=== PATIENT | female | born 1935 | race Asian ===

== ENCOUNTER 2017-09-09 17:22 | Inpatient (IN) | payer MEDICARE, OTHER ==
[~2017-09-09] VITALS: Ht 152.4 cm; Wt 51.4 kg
[2017-09-09 21:01] VITALS: BP 140/68
[2017-09-09 21:02] VITALS: BP 116/60
--- NOTE | 2017-09-09 21:12 | NUR ---
PT RECEIVED DIRECT ADMIT. PT IS INTUBATED 7.0 ETT SECURED AT 22CM AT THE LIP. AC 12, 400, 35%, +5. NO RESP DISTRESS NOTED. PT TOLERATING VENT SETTINGS. SX'D FOR SML AMT OF TINGED SECRETIONS. VENT ALARMS SET AND AUDIBLE. AMBU BAG AT BEDSIDE. WILL CONTINUE TO MONITOR. Addendum: 09/09/17 at 2113 by ESTEVAN THOMAS RT Amended: Links added.
[2017-09-09 22:00] VITALS: BP 118/65
[2017-09-09] MEDS ORDERED: IV NS 0.9% 1,000 ML IV PRN (22:15)
[2017-09-09] MEDS ORDERED: ACETAMINOPHEN 325 MG TABLET PO PRN (22:30)
[2017-09-09] MEDS ORDERED: ONDANSETRON HCL/PF 4 MG/2 ML VIAL IVP PRN (22:30)
[2017-09-09] MEDS ORDERED: MAGNESIUM HYDROXIDE 30 ML UDC PO PRN (22:30)
[2017-09-09] MEDS ORDERED: MAG HYDROX/AL HYDROX/SIMETH 30 ML UDC PO PRN (22:30)
[2017-09-09 22:33] VITALS: BP 117/60
[2017-09-09 22:56] LABS: BASOPHILS % (AUTO) 0.2 % (0.0-2.0); HEMATOCRIT 33 % (33-45); HEMOGLOBIN 10.7 g/dL (11.5-14.8); LYMPHOCYTES # (AUTO) 4.9 /CMM (0.8-4.8); LYMPHOCYTES % (AUTO) 23.6 % (20.0-44.0); MEAN CORPUSCULAR HEMOGLOBIN 32 PG (26.0-33.0); MEAN CORPUSCULAR HGB CONC 33 g/dl (31.0-36.0); MEAN CORPUSCULAR VOLUME 98 fL (82-100); MONOCYTES # (AUTO) 0.1 /CMM (0.1-1.30); MONOCYTES % (AUTO) 0.7 % (2.0-12.0); NEUTROPHILS # (AUTO) 15.6 /CMM (1.8-8.9); NEUTROPHILS % (AUTO) 75.5 % (43.0-81.0); PLATELET COUNT (AUTO) 85 /CMM (150-450); RDW COEFFICIENT OF VARIATION 15.1 (11.5-15.0); RED BLOOD CELL COUNT(AUTO) 3.36 MIL/uL (4.0-5.2); WHITE BLOOD COUNT (AUTO) 20.7 K/uL (4.3-11.0)
--- NOTE | 2017-09-09 22:57 | NUR ---
BED MAKERMR TEACHER. PT DIRECT ADMITTED FROM [facility] . ORALLY INTUBATED, PT AWAKE, OPEN EYES. DOES NOT FOLLOW COMMANDS. RT HAND CONTRACTED. LT SIDE MILD WEAKNESS, ADONAY FOOT NONPITTING EDEMA 2+.SACRAL WOUND AND MULTIPLE BRUISE AND SCAB,DRESSING DONE. WOUND CONSULT ORDERED. OGT INTACT. CLAMPED. ETT #7,AC 12,LIP 22,TV 400,FIO2 35%,PEEP 5. SAT 98%. NO ACUTE DISTRESS NOTED. FRINGE KNOTTER SHOWING NSR, IV LT UPPERARM PICC LINE AND LT AC 22G. FC PATENT. HOB ELEVATED. AFEBRILE. WILL CONTINUE TO MONITOR VITALS.
[2017-09-09 23:00] VITALS: BP 109/63
[2017-09-09] MEDS ORDERED: CEFEPIME 1 GM in IV D5W 50 ML IV SCH (23:00)
--- NOTE | 2017-09-09 23:04 | NUR ---
FOUR SLIDE MACHINE SETTER. PERSONAL LINES SALES EXECUTIVE GULSHAN HUGHES AT BED SIDE ASSESSED THE PT SPOKE WITH PT DAUGHTER. NEW ORDER RECEIVED.
[2017-09-09 23:08] LABS: ABG BASE EXCESS -8.1 mmol/L; ABG OXYGEN SATURATION 97.6 % (92.0-98.5); ABG PCO2 22.5 mmHg (35.0-45.0); ABG PH 7.425 (7.350-7.450); ABG PO2 114.5 mmHg (75.0-100.0); AaDO2 108.9 mmHg; COHb 0.3 % (0.5-1.5); MetHb 0.8 % (0.0-1.5); O2Hb 96.5 % (94.0-97.0); PEEP,BG 5 cm H2O; SITE, ABG Left Radial
--- NOTE | 2017-09-09 23:09 | NUR ---
ABG DONE. RN NOTIFIED WITH THE RESULT.
[2017-09-09 23:10] LABS: INR 1.3 (0.87-1.13)
[2017-09-09 23:14] LABS: ALANINE AMINOTRANSFERASE 12 U/L (12-78); ALBUMIN 1.9 g/dL (3.4-5.0); ALKALINE PHOSPHATASE 85 U/L (46-116); ASPARTATE AMINOTRANSFERASE 57 U/L (15-37); BILIRUBIN,TOTAL 0.3 mg/dL (0.2-1.0); CARBON DIOXIDE 16 mmol/L (21-32); CHLORIDE 112 mmol/L (98-107); CREATININE 1.1 mg/dL (0.6-1.3); GLUCOSE 59 mg/dL (74-106); POTASSIUM 4.3 mmol/L (3.5-5.1); SODIUM SERUM 137 mmol/L (136-145); UREA NITROGEN, BLOOD 38 mg/dL (7-18)
[2017-09-09] MEDS ORDERED: CEFEPIME 1 GM VIAL ONE (23:17)
[2017-09-09 23:18] LABS: BAND % (MANUAL) 22 % (0.0-5.0); LYMPHOCYTES % (MANUAL) 29 % (16-48); NEUTROPHILS % (MANUAL) 47 (42-76)
[2017-09-09 23:19] LABS: METAMYELOCYTES % 1 % (0-0); MONOCYTES % (MANUAL) 1 % (0-11.0); TROPONIN I 1.461 ng/mL (0.00-0.056)
[2017-09-09 23:22] LABS: CHOLESTEROL 68 mg/dL (<200); HDL CHOLESTEROL 14 mg/dL (40-60); LDL 27 mg/dL (0-99); THYROID STIMULATING HORMONE 1.587 uIU/mL (0.358-3.74); TRIGLYCERIDES 100 mg/dL (30-150)
[2017-09-09 23:31] VITALS: BP 105/58
--- NOTE | 2017-09-09 23:41 | NUR ---
UX INTERACTION DESIGNER. CRITICAL LAB CALLED LACTIC ACID IS 2., GULSHAN THERAPEUTIC STRATEGY LEAD MADE AWARE NS 500ML BOLUS GIVEN.
--- NOTE | 2017-09-09 23:42 | NUR ---
TIMBER SPRINKLER. ABG DONE. RESULT WITH GULSHAN HUGHES NO ORDERS.
[2017-09-10] VITALS (52 sets, daily range): BP systolic 105–169; BP diastolic 51–84
[2017-09-10] MEDS ORDERED: IV NS 0.9% 500 ML IV ONE
[2017-09-10] MEDS ORDERED: VANCOMYCIN 1 GM VIAL ONE (00:49)
[2017-09-10] MEDS ORDERED: VANCOMYCIN 1 GM in IV NS 0.9% 250 ML IV ONE (01:00)
--- NOTE | 2017-09-10 01:10 | NUR ---
@[address] @[address]
[2017-09-10 02:28] LABS: BILIRUBIN,DIRECT 0.1 mg/dL (0.0-0.2)
--- NOTE | 2017-09-10 03:33 | NUR ---
DEMOLITION WORKER. AM CARE, ORAL CARE,BED BATH GIVEN. LINEN CHANGED, REMAINING SAME VENT SETTING TOLERATED WELL. SAT 98%. NO ACUTE DISTRESS NOTED. SECONDARY SCHOOL PRINCIPAL SHOWING NSR. IV LT UPPER ARM PICC LINE, IVF NS 50ML/H, FC PATENT. OGT CLAMPED. NPO. HOB ELEVATED, AFEBRILE. TURN AND REPOSITION Q2H. WILL CONTINUE TO MONITOR VITALS.
[2017-09-10 04:54] LABS: BASOPHILS % (AUTO) 0.2 % (0.0-2.0); EOSINOPHILS % (AUTO) 0.4 % (0.0-6.0); HEMATOCRIT 39 % (33-45); HEMOGLOBIN 12.4 g/dL (11.5-14.8); LYMPHOCYTES # (AUTO) 4.8 /CMM (0.8-4.8); LYMPHOCYTES % (AUTO) 22.7 % (20.0-44.0); MEAN CORPUSCULAR HEMOGLOBIN 32 PG (26.0-33.0); MEAN CORPUSCULAR HGB CONC 32 g/dl (31.0-36.0); MEAN CORPUSCULAR VOLUME 99 fL (82-100); MONOCYTES # (AUTO) 0.1 /CMM (0.1-1.30); MONOCYTES % (AUTO) 0.6 % (2.0-12.0); NEUTROPHILS % (AUTO) 76.1 % (43.0-81.0); PLATELET COUNT (AUTO) 52 /CMM (150-450); RDW COEFFICIENT OF VARIATION 15.2 (11.5-15.0)
[2017-09-10] MEDS ORDERED: IV NS 0.9% 1,000 ML IV PRN (05:00)
[2017-09-10 05:07] LABS: CALCIUM, SERUM 6.1 mg/dL (8.5-10.1); CARBON DIOXIDE 15 mmol/L (21-32); CHLORIDE 111 mmol/L (98-107); CREATININE 1.1 mg/dL (0.6-1.3); GLUCOSE 73 mg/dL (74-106); MAGNESIUM 2.4 mg/dL (1.8-2.4); PHOSPHORUS 3.7 mg/dL (2.5-4.9); SODIUM SERUM 140 mmol/L (136-145); UREA NITROGEN, BLOOD 38 mg/dL (7-18)
[2017-09-10] MEDS: DAKINS QUARTER STRENGTH (0.125%) 480 ML BOTTLE TOP SCH (06:00)
[2017-09-10 06:13] LABS: BAND % (MANUAL) 25 % (0.0-5.0); LYMPHOCYTES % (MANUAL) 16 % (16-48); NEUTROPHILS % (MANUAL) 59 (42-76)
--- NOTE | 2017-09-10 08:16 | NUR ---
WOUND CARE CONSULT: PATIENT SEEN AND SKIN INTEGRITY ASSESSMENT DONE. PLEASE SEE MANAGER GRAPHIC ASSESSMENT IN PCS FOR TODAY. RECOMMEND SURGICAL CONSULT WELL DPM. PATIENT WITH CURRENT ERNIE OF 13, CONTINUE ALL PRESSURE ULCER PREVENTION MEASURES PER CURRENT PLAN OF CARE. WILL SEE PATIENT PRN. SURGICAL TEAM NOTIFIED. Addendum: 09/10/17 at 0823 by HILLARY REYNOLDS RN Amended: Links added.
[2017-09-10] MEDS: PANTOPRAZOLE 40 MG VIAL IV SCH (09:21)
[2017-09-10] MEDS ORDERED: IOHEXOL-300 100 ML VIAL IV ONE (09:29)
[2017-09-10] MEDS ORDERED: IV NS 0.9% 250 ML IV ONE (09:29)
[2017-09-10] MEDS ORDERED: CT SWABBABLE VALVE TRANS SET 1 EA INFUS.SET MC ONE (09:29)
[2017-09-10] MEDS ORDERED: CEFEPIME 2 GM in IV D5W 100 ML IV SCH (10:00)
--- NOTE | 2017-09-10 10:40 | NUR ---
PT REC'D INTUBATED VIA 7.0 ETT @22CM AT THE LIP. PT ON VENT AWAKE AND ALERT WITH NO SEDATION ON BOARD. PT DOES NOT APPEAR TO BE IN ANY RESP. DISTRESS. VENT SETTINGS PER PULMONARY, ALARMS SET AND AUDIBLE PER POLICY. VENT PLUGGED INTO RED OUTLET. AMBU BAG AT HOB. Addendum: 09/10/17 at 1042 by REGINE HURLEY RT Amended: Links added.
[2017-09-10] MEDS ORDERED: FEE PK DOSING 1 MIN EA MC ONE (12:26)
[2017-09-10 13:57] LABS: BILIRUBIN,URINE NEGATIVE (NEGATIVE); BLOOD, URINE 1+ Ery/uL (NEGATIVE); COLOR,URINE YELLOW (YELLOW); KETONES,URINE NEGATIVE (NEGATIVE); LEUKOCYTE ESTERASE ,URINE NEGATIVE (NEGATIVE); NITRITE, URINE NEGATIVE (NEGATIVE); PROTEIN,URINE NEGATIVE (NEGATIVE); UGLUCOSE NEGATIVE (NEGATIVE); UROBILINOGEN,URINE 0.2 EU/dL (0.2)
[2017-09-10 14:32] LABS: APPEARANCE,URINE SLIGHTLY HAZY (CLEAR)
[2017-09-10 14:34] LABS: BACTERIA,URINE Few /HPF (None Seen); SQUAMOUS EPITHELIAL CELL,UR Few /HPF (None Seen); WBC,URINE 0-2 /HPF (0-3)
[2017-09-10 14:38] LABS: URINE TOTAL PROTEIN 39.7 mg/dL (0-11.9)
[2017-09-10 15:39] LABS: EOSINOPHIL,URINE None Seen
[2017-09-10] MEDS: ZOSYN IVPB 2.25 G in IV D5W 50ml IV SCH ×3 (16:30→23:06)
--- NOTE | 2017-09-10 16:31 | NUR ---
PT IS BACK FROM HIDA SCAN. TOLERATED PROCEDURE WELL. GALLBLADDER NOT VISUALIZED DURING THIS SCAN. WILL REPEAT AT 17:30 DR BARBER IS HERE TO SEE PT. UPDATED ON PROGRESS.
--- NOTE | 2017-09-10 18:00 | NUR ---
PT WENT FOR REPEAT HIDA SCAN. ASSISTED WITH BED BATH, ORAL CARE AND SKIN CARE. PHARMACY NOTIFIED THAT WE ARE STILL AWAITING [facility] FOR WOUNDCARE. DAUGHTER IS AT THE BEDSIDE NOW. UPDATED ON PROGRESS, CONSENT FOR DEBRIDEMENT OF SACRAL WOUND OBTAINED.
[2017-09-10] MEDS: IV NS 0.9% 1,000 ML IV PRN (19:00)
--- NOTE | 2017-09-10 19:30 | NUR ---
PROSTHETIC ASSISTANT INITIAL NOTES RECEIVED PATIENT IN BED, ASLEEP/EYES CLOSED. PATIENT ORALLY INTUBATED, ON MECHANICAL VENT AT PRESCRIBED SETTINGS, SUCTIONED FOR AIRWAY CLEARANCE. CLARK PICC PATENT AND INTACT, FLUSHED WITH NS, NO S/S OF INFILTRATION OR PHLEBITIS, ONGOING IVF AT PRESCRIBED RATE. OGT PATETN AND INTACT, AUSCULTATED FOR PLACEMENT, CLAMPED. CAMARGO PATENT AND INTACT, DRAINING CLEAR YELLOW URINE VIA GRAVITY. WILL CONTINUE TO CLOSELY MONITOR.
--- NOTE | 2017-09-10 20:01 | NUR ---
PT IS AWAKE AND ALERT INTUBATED 7.0 ETT SECURED AT 22CM AT THE LIP. NO RESP DISTRESS. PT TOLERATING VENT SETTINGS. SX'D FOR SML AMT OF THIN TINGED SECRETIONS. VENT ALARMS SET AND AUDIBLE. AMBU BAG AT BEDSIDE. VENT PLUGGED INTO RED OUTLET. WILL CONTINUE TO MONITOR. Addendum: 09/10/17 at 2002 by ESTEVAN THOMAS RT Amended: Links added.
--- NOTE | 2017-09-10 20:15 | NUR ---
Met with daughter Abiola, patient is non-verbal, lethargic with hx of dementia. Patient lives with son and son's family in the 1st floor apartment. Patient spouse is currently at the [facility] on HD. 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 Patient has good family support and receives IHSS. Available DME: hosp bed and wheelchair. If patient goes back home > family is requesting hoyerlift and recliner chair. Family would like to discuss with attending physician patient prognosis for appropriate dc planning disposition - Home vs SNF Addendum: 09/10/17 at 2016 by ROXANA ALEX RN Amended: Links added.
[2017-09-10] MEDS: VANCOMYCIN 500 MG in IV D5W 100 ML IV SCH (20:47)
[2017-09-10] MEDS: CARVEDILOL 3.125 MG TABLET PO SCH (20:47)
[2017-09-10] MEDS: ATORVASTATIN 10 MG TABLET PO SCH (21:06)
[2017-09-11] VITALS (50 sets, daily range): BP systolic 62–154; BP diastolic 42–84
[2017-09-11] MEDS: IV NS 0.9% 1,000 ML IV PRN ×2 (02:47→13:09)
[2017-09-11 05:05] LABS: BASOPHILS % (AUTO) 0.1 % (0.0-2.0); EOSINOPHILS % (AUTO) 0.1 % (0.0-6.0); HEMATOCRIT 32 % (33-45); HEMOGLOBIN 10.5 g/dL (11.5-14.8); LYMPHOCYTES % (AUTO) 34.8 % (20.0-44.0); MEAN CORPUSCULAR HEMOGLOBIN 32 PG (26.0-33.0); MEAN CORPUSCULAR HGB CONC 33 g/dl (31.0-36.0); MEAN CORPUSCULAR VOLUME 97 fL (82-100); MONOCYTES # (AUTO) 0.1 /CMM (0.1-1.30); MONOCYTES % (AUTO) 0.6 % (2.0-12.0); NEUTROPHILS # (AUTO) 9.3 /CMM (1.8-8.9); NEUTROPHILS % (AUTO) 64.4 % (43.0-81.0); RDW COEFFICIENT OF VARIATION 15.5 (11.5-15.0); RED BLOOD CELL COUNT(AUTO) 3.29 MIL/uL (4.0-5.2); WHITE BLOOD COUNT (AUTO) 14.5 K/uL (4.3-11.0)
[2017-09-11 05:15] LABS: PLATELET COUNT (AUTO) 48 /CMM (150-450)
[2017-09-11 05:25] LABS: CARBON DIOXIDE 15 mmol/L (21-32); CHLORIDE 113 mmol/L (98-107); CREATININE 0.9 mg/dL (0.6-1.3); POTASSIUM 3.9 mmol/L (3.5-5.1); SODIUM SERUM 142 mmol/L (136-145); UREA NITROGEN, BLOOD 32 mg/dL (7-18)
[2017-09-11 05:40] LABS: CALCIUM, SERUM 5.8 mg/dL (8.5-10.1); GLUCOSE 46 mg/dL (74-106)
[2017-09-11 05:57] LABS: BAND % (MANUAL) 14 % (0.0-5.0); LYMPHOCYTES % (MANUAL) 23 % (16-48); NEUTROPHILS % (MANUAL) 63 (42-76)
[2017-09-11] MEDS ORDERED: DEXTROSE 50%-WATER 50 ML DISP.SYRIN IVP ONE (06:00)
--- NOTE | 2017-09-11 06:00 | NUR ---
RN NOTES RECEIVED CALL FROM LAB REGARDING BLOOD SUGAR OF 48. PERIPHERAL STICK SHOWS BLOOD SUGAR OF 45. D50 ADMINISTERED PER PROTOCOL. GINETTE RICHARDS NP PAGED. AWAITING CALL BACK
[2017-09-11] MEDS: ZOSYN IVPB 2.25 G in IV D5W 50ml IV SCH ×4 (06:09→23:15)
--- NOTE | 2017-09-11 07:00 | NUR ---
RN CLOSING NOTES PATIENT RESTING IN BED, APPEARS COMFORTABLE. STILL NO CALL BACK FROM MAURICE HUGHES. WILL ENDORSE THE PATIENT TO THE AM SHIFT NURSE FOR CONTINUITY OF CARE
--- NOTE | 2017-09-11 07:15 | NUR ---
RECEIVED CARE OF PATIENT FROM RN ANNEMARIE. PATIENT NON VERBAL AWAKE AND TRACKING. UNABLE TO FOLLOW COMMANDS. PATIENT NOTED WITH RIGHT SIDED PARALYSIS AND CONTRACTURE OF RIGHT HAND. LEFT UE SEVERE WEAKNESS HOWEVER MOVEMENT NOTED. BLE FOOT DROP/CONTRACTURES. ETT 7.0/22 LIP VENT SETTINGS PER ORDER TOLERATING WELL NO SOB, DIFFICULTY BREATHING AND FLACC 0. PATIENT OGT IN PLACE CLAMPED NPO PENDING SURGICAL EVAL. CRITICAL LABS TO BE CALLED TO PIPE SUPERVISOR; NO S/S BLEEDING. VS STABLE. PATIENT PENDING DEBRIDEMENT OF SACRUM TODAY. ASPIRATION, SKIN AND SAFETY PRECAUTIONS IN PLACE
--- NOTE | 2017-09-11 07:25 | NUR ---
SPOKE WITH Jr DAMIAN AND NOTIFIED OF CRITICAL LABS. PER MD PLEASE ORDER ALBUMIN THIS AM AND HE WILL SEE. AWARE HIDA SCAN DID NOT VISUALIZE GALLBLADDER AND STATED DR RANDALL IS TO SEE THE PATIENT. PER MD NO TRANSFUSION OF PLATELETS AT THIS TIME. PATIENT VS STABLE.
[2017-09-11] MEDS ORDERED: DEXTROSE 50%-WATER 50 ML DISP.SYRIN IV PRN (07:30)
--- NOTE | 2017-09-11 08:14 | NUR ---
RT PATIENT REC'D ORALLY INTUBATED ON [facility] VENT WITH ORDERED SETTINGS ANANTH WELL. VENT ALARMS CHECKED + AUDIBLE. CUFF PRESSURE CHECKED COMMUNITY RECREATION COORDINATOR. B/S DIM. VALDERRAMA BAG AT HOB. Addendum: 09/11/17 at 1342 by DYLAN BONILLA RT Amended: Links added.
[2017-09-11] MEDS: CARVEDILOL 3.125 MG TABLET PO SCH ×2 (08:49→20:26)
[2017-09-11] MEDS: DAKINS QUARTER STRENGTH (0.125%) 480 ML BOTTLE TOP SCH (08:53)
[2017-09-11] MEDS: PANTOPRAZOLE 40 MG VIAL IV SCH (08:53)
[2017-09-11] MEDS: Z GUARD REMEDY 2 OZ OINT TP PRN ×2 (08:53→17:22)
--- NOTE | 2017-09-11 09:00 | NUR ---
DR BARBER AT BEDSIDE. AWARE OF PATIENT LABS, VS AND COREG HELD THIS AM. PER MD CONTINUE TO HOLD ASA S/T LOW PLT AND PENDING ECHO. NO OTHER ORDERS AT THIS TIME Addendum: 09/11/17 at 1009 by CAROLE BURNS RN AWARE PATIENT HR AT REST CAN DIP TO HIGH 40'S. NO NEW ORDERS
--- NOTE | 2017-09-11 09:50 | NUR ---
Jr DAMIAN AT BEDSIDE SPEAKING WITH DAUGHTER ROWENA. PER DAUGHTER PATIENT IS TO BE DNR OK FOR CONTINUED INTBATION AND REINTUBATION IF NEEDED. ORDER ADDED DNR. NO OTHER ORDERS AT THIS TIME
[2017-09-11] MEDS: BLOOD SUGAR DIAGNOSTIC 1 EACH STRIP IN SCH ×3 (11:17→23:15)
--- NOTE | 2017-09-11 12:00 | NUR ---
BED BATH COMPLETED. PATIENT HAD SKIN UNDER HANDS, NAILS, INBETWEEN FINGERS, TOES AND ON BACK. SOCIAL SERVICE CONSULT ORDERED..
--- NOTE | 2017-09-11 12:30 | NUR ---
DR BARBOUR AT BEDSIDE FOR CLIPPING TOE NAILS. COMPLETED WITH MINIMAL BLEEDING. PER MD PAIN BETADINE AND LEAVE OPEN TO AIR. PICTURES UPDATED.
[2017-09-11] MEDS: VANCOMYCIN 500 MG in IV D5W 100 ML IV SCH (14:00)
--- NOTE | 2017-09-11 14:00 | NUR ---
PATIENT TEMP LOWERING. APPLIED WARMING MEASURES AND CORE TEMP MONITORING.
--- NOTE | 2017-09-11 14:07 | NUR ---
SPOKE WITH NATI. PER MASS COMMUNICATIONS PROFESSOR PATIENT WILL GO AHEAD WITH TUBE INSERTION TOMORROW AT BEDSIDE. HOWEVER PATIENT REQUIRES PLATELET LEVEL OF AT LEAST 80 FOR PROCEDURE. PER MASS COMMUNICATIONS PROFESSOR TRANSFUSE 1 UNIT OF PLATELETS AND RECHECK PLATELET LEVEL WITHIN 1 HOUR AND REPEAT UNTIL LEVEL IS 80 OR MORE.
--- NOTE | 2017-09-11 14:53 | NUR ---
MARY GROSS ORDERED TEMP LOW.
[2017-09-11] MEDS: ALBUMIN 25% 25 GM in PREMIX 1 EA IV SCH ×2 (15:40→20:25)
--- NOTE | 2017-09-11 18:48 | NUR ---
PATIENT TEMP RISING WITH MARY HUGGER. ALL DUE MEDS GIVEN AND ALL NEEDS MET. CALLED BLOOD BANK TO F/U ON PLATELETS STATED THEY WILL CALL [facility] TO FOLLOW UP. NO S/S ACTIVE BLEEDING AT THIS TIME. CAMARGO CATH IN PLACE MINIMAL OUTPUT TODAY 100ML DR LAYTON AWARE. PICC C/D/I/P IVF RUNNING PER ORDER. ETT IN PLACE NO MOVEMENT VENT ORDERED AND TOLERATING WELL. SAFETY, SKIN, AND ASPIRATION PRECAUTIONS IN PLACE AND MONITORED THROUGHOUT DAY. CARE ENDORSED TO AMANDA YANG FOR ASIA.
--- NOTE | 2017-09-11 19:30 | NUR ---
RN INITIAL NOTES RECEIVED THE PATIENT OBTUNDED ON VENT, OPENS EYES ONLY. NO SEDATION. INTUBATED AND ON VENT WITH SETTINGS AC 12, TV 400, FIO2 35%, PEEP 5, ETT 7.0/22@ LIP, SATURATING WELL, NO S/S OF RESP DISTRESS. SR ON THE MONITOR, HR 70'S. OGT IS CLAMPED, NPO STATUS. CAMARGO INTACT WITH MINIMAL URINE OUTPUT. LEFT UPPER ARM PICC WITH NS @ 100MLS/HR, NO S/S OF INFILTRATION/INFECTION, DRESSING CDI. MARY HUGGER IN PLACE. BED LOW AND LOCKED, SIDERAILS UP, BED ALARM ON. WILL MONITOR
--- NOTE | 2017-09-11 20:20 | NUR ---
RECEIVED PT INTUBATED 7.0 ETT SECURED AT 22CM AT THE LIP. PT TOLERATING VENT SETTINGS. PT IS AWAKE NO SEDATION. PT HAS GOOD GAG REFLEX. SX'D FOR SML AMT OF THIN WHITE SECRETIONS. B/S CL DM. VENT ALARMS SET AND AUDIBLE. AMBU BAG AT BEDSIDE. VENT PLUGGED INTO RED OUTLET. WILL CONTINUE TO MONITOR. Addendum: 09/11/17 at 2025 by ESTEVAN THOMAS RT Amended: Links added.
[2017-09-11] MEDS: ATORVASTATIN 10 MG TABLET PO SCH (21:43)
--- NOTE | 2017-09-11 23:36 | NUR ---
RN NOTES NOTIFIED ON-CALL JV BASEBALL COACH GINETTE IN REGARDS TO LOW BLOOD SUGAR 56. NO NEW ORDERS OF THE MOMENT.
[2017-09-12] VITALS (55 sets, daily range): BP systolic 70–165; BP diastolic 33–78
--- NOTE | 2017-09-12 00:38 | NUR ---
RN NOTES GINETTE HUGHES NOTIFIED OF PATIENT'S CURRENT PLATELET 105
[2017-09-12] MEDS: IV D5/ 0.9% NACL 1,000 ML IV PRN ×2 (01:00→17:30)
[2017-09-12] MEDS: ALBUMIN 25% 25 GM in PREMIX 1 EA IV SCH ×2 (02:45→07:51)
[2017-09-12 04:22] LABS: BASOPHILS % (AUTO) 0.1 % (0.0-2.0); EOSINOPHILS % (AUTO) 0.1 % (0.0-6.0); HEMATOCRIT 24 % (33-45); HEMOGLOBIN 7.8 g/dL (11.5-14.8); LYMPHOCYTES # (AUTO) 3.7 /CMM (0.8-4.8); LYMPHOCYTES % (AUTO) 27.7 % (20.0-44.0); MEAN CORPUSCULAR HEMOGLOBIN 32 PG (26.0-33.0); MEAN CORPUSCULAR HGB CONC 33 g/dl (31.0-36.0); MEAN CORPUSCULAR VOLUME 97 fL (82-100); MONOCYTES % (AUTO) 0.3 % (2.0-12.0); NEUTROPHILS # (AUTO) 9.7 /CMM (1.8-8.9); NEUTROPHILS % (AUTO) 71.8 % (43.0-81.0); PLATELET COUNT (AUTO) 108 /CMM (150-450); RDW COEFFICIENT OF VARIATION 15.2 (11.5-15.0); RED BLOOD CELL COUNT(AUTO) 2.47 MIL/uL (4.0-5.2); WHITE BLOOD COUNT (AUTO) 13.5 K/uL (4.3-11.0)
[2017-09-12 04:33] LABS: INR 1.47 (0.87-1.13)
[2017-09-12 04:34] LABS: GLUCOSE 153 mg/dL (74-106); UREA NITROGEN, BLOOD 31 mg/dL (7-18)
[2017-09-12 04:39] LABS: CHLORIDE 113 mmol/L (98-107); POTASSIUM 3.2 mmol/L (3.5-5.1); SODIUM SERUM 144 mmol/L (136-145)
[2017-09-12 04:43] LABS: CARBON DIOXIDE 10 mmol/L (21-32)
[2017-09-12] MEDS: BLOOD SUGAR DIAGNOSTIC 1 EACH STRIP IN SCH ×4 (05:11→23:25)
[2017-09-12] MEDS: ZOSYN IVPB 2.25 G in IV D5W 50ml IV SCH ×4 (05:11→23:25)
--- NOTE | 2017-09-12 06:15 | NUR ---
RN CLOSING NOTES PT REMAINS STABLE OF THE MOMENT. ALL DUE MEDS GIVEN, AM CARE PROVIDED. WILL ENDORSE ASIA TO AM RN
[2017-09-12] MEDS ORDERED: VANCOMYCIN 500 MG in IV D5W 100 ML IV SCH (08:00)
[2017-09-12] MEDS: PANTOPRAZOLE 40 MG VIAL IV SCH (08:12)
[2017-09-12] MEDS: Z GUARD REMEDY 2 OZ OINT TP PRN ×2 (08:12→14:33)
[2017-09-12] MEDS: CARVEDILOL 3.125 MG TABLET PO SCH ×2 (08:12→21:04)
--- NOTE | 2017-09-12 08:58 | NUR ---
GULSHAN DAMIAN AT BEDSIDE. NOTIFIED MANAGER RENEWABLE ENERGY PATIENT MORE LETHARGIC TODAY. S/P 1 UNIT PLATELETS AND COUNT STABLE PER RADIOLOGY. AWARE HGB DROPPED FROM 10.5-7.8 PER MANAGER RENEWABLE ENERGY ORDER STOOL OB. AWARE PATIENT URINATING VERY DIMINISHED;ORDER TO CHECK BLADDER SCAN. RT AWARE OF RESPIRATORY CULTURE ORDER. CAMARGO CATH FLUSHED APPEARS PATENT. AWAITING BLADDER SCANNER
[2017-09-12] MEDS: DAKINS QUARTER STRENGTH (0.125%) 480 ML BOTTLE TOP SCH (09:28)
[2017-09-12] MEDS ORDERED: MIDAZOLAM HCL 5MG/ML VIAL 25 MG/5 ML VIAL IV ONE (09:30)
[2017-09-12] MEDS ORDERED: FENTANYL PF 250MCG/5ML AMPUL IV ONE (09:30)
[2017-09-12] MEDS ORDERED: NALOXONE PREFILLED SYRINGE 2 MG/2 ML SYRINGE IV ONE (09:30)
[2017-09-12] MEDS ORDERED: LIDOCAINE HCL/PF 1% 30 ML SDV ONE (11:51)
--- NOTE | 2017-09-12 13:00 | NUR ---
PROCEDURE COMPLETED. PATIENT HAS A CHOLECYSTOSTOMY TUBE IN PLACE ON RIGHT SIDE. NO BLEEDING NOTED. PER DR HERNANDEZ SAMPLE SENT FOR CULTURE G/S. FLUID LOOKS PUSSY AND BROWN. PATIENT TOLERATED WELL. VS STABLE. AWAKE TO LIGHT TOUCH.
[2017-09-12] MEDS: POTASSIUM CL. PREMIX PERIPHER. 50 ML IV SCH ×4 (13:06→16:55)
--- NOTE | 2017-09-12 16:00 | NUR ---
RT PT RECEIVED ORALLY INTUBATED WITH A 7.0 ETT SECURED AT 22CM AT THE LIP LINE. PT IS ON THE VENT WITH NOTED SETTINGS. PT DOES NOT FOLLOW COMMANDS BUT RESPONDS TO STIMULI WHEN SX'D. VENT ALARMS ARE SET AND AUDIBLE WITH BVM BY BEDSIDE. CASE ADVOCATE CUFF PRESSURE NOTED. VENT IS PLUGGED INTO RED OUTLET. PT SX'D SMALL THICK PALE YELLOW SECRETIONS. NO RESPIRATORY DISTRESS NOTED AT THIS TIME, WILL CONTINUE TO MONITOR. Addendum: 09/12/17 at 1604 by IRMA COYLE RT Amended: Links added.
--- NOTE | 2017-09-12 18:41 | NUR ---
ALL DUE MEDS GIVEN AND ALL NEEDS MET. NO S/S ACTIVE BLEEDING AT THIS TIME. CAMARGO CATH IN PLACE MINIMAL OUTPUT; PATENT. PICC C/D/I/P IVF RUNNING PER ORDER. ETT IN PLACE WITH VENT SETTINGS ORDERED AND TOLERATING WELL. SAFETY, SKIN, AND ASPIRATION PRECAUTIONS IN PLACE AND MONITORED THROUGHOUT DAY. ACORDIAN DRAIN RIGHT LAT ABD IN PLACE 75ML PURULENT, BROWN FOUL SMELLING DRAINED. CARE WILL BE ENDORSED TO RN FOR ASIA
--- NOTE | 2017-09-12 20:00 | NUR ---
FOUR CORNER STAYER MACHINE OPERATOR - NOTES - RECEIVED THE PATIENT ON VENT, OPENS EYES ONLY. NO SEDATION. INTUBATED AND ON VENT WITH SETTINGS AC 12, TV 400, FIO2 35%, PEEP 5, ETT 7.0/22@ LIP, SATURATING WELL, NO S/S OF RESP DISTRESS. SR ON THE MONITOR, HR 60S. OGT IS CLAMPED, NPO STATUS. CAMARGO INTACT WITH MINIMAL URINE OUTPUT. LEFT UPPER ARM PICC WITH NS @ 100MLS/HR, NO S/S OF INFILTRATION/INFECTION, DRESSING CDI. MARY HUGGER IN PLACE. BED LOW AND LOCKED, SIDERAILS UP, BED ALARM ON. WILL MONITOR
[2017-09-12] MEDS: ATORVASTATIN 10 MG TABLET PO SCH (21:04)
[2017-09-13] VITALS (43 sets, daily range): BP systolic 90–150; BP diastolic 37–61
[2017-09-13 05:01] LABS: BASOPHILS % (AUTO) 0.3 % (0.0-2.0); CARBON DIOXIDE 11 mmol/L (21-32); CHLORIDE 117 mmol/L (98-107); CREATININE 1.1 mg/dL (0.6-1.3); EOSINOPHILS % (AUTO) 0.7 % (0.0-6.0); GLUCOSE 214 mg/dL (74-106); HEMATOCRIT 27 % (33-45); HEMOGLOBIN 8.9 g/dL (11.5-14.8); LYMPHOCYTES # (AUTO) 3.2 /CMM (0.8-4.8); LYMPHOCYTES % (AUTO) 36.6 % (20.0-44.0); MEAN CORPUSCULAR HEMOGLOBIN 32 PG (26.0-33.0); MEAN CORPUSCULAR HGB CONC 33 g/dl (31.0-36.0); MEAN CORPUSCULAR VOLUME 97 fL (82-100); MONOCYTES # (AUTO) 0.1 /CMM (0.1-1.30); MONOCYTES % (AUTO) 0.8 % (2.0-12.0); NEUTROPHILS # (AUTO) 5.4 /CMM (1.8-8.9); NEUTROPHILS % (AUTO) 61.6 % (43.0-81.0); PLATELET COUNT (AUTO) 62 /CMM (150-450); POTASSIUM 4.2 mmol/L (3.5-5.1); RDW COEFFICIENT OF VARIATION 15.9 (11.5-15.0); RED BLOOD CELL COUNT(AUTO) 2.81 MIL/uL (4.0-5.2); SODIUM SERUM 145 mmol/L (136-145); UREA NITROGEN, BLOOD 30 mg/dL (7-18); WHITE BLOOD COUNT (AUTO) 8.8 K/uL (4.3-11.0)
[2017-09-13 05:17] LABS: BAND % (MANUAL) 15 % (0.0-5.0); LYMPHOCYTES % (MANUAL) 40 % (16-48); NEUTROPHILS % (MANUAL) 45 (42-76)
[2017-09-13] MEDS: BLOOD SUGAR DIAGNOSTIC 1 EACH STRIP IN SCH ×3 (06:36→17:43)
[2017-09-13] MEDS: ZOSYN IVPB 2.25 G in IV D5W 50ml IV SCH ×4 (06:47→23:29)
[2017-09-13] MEDS: DAKINS QUARTER STRENGTH (0.125%) 480 ML BOTTLE TOP SCH (08:31)
[2017-09-13] MEDS: CARVEDILOL 3.125 MG TABLET PO SCH ×2 (08:31→21:00)
[2017-09-13] MEDS: IV D5/ 0.9% NACL 1,000 ML IV PRN (08:31)
[2017-09-13] MEDS: PANTOPRAZOLE 40 MG VIAL IV SCH (08:31)
--- NOTE | 2017-09-13 08:54 | NUR ---
RN NOTE 0720: Received patient awake, opens eyes, able to track voice at times, does not follow commands at this time. With ETT to vent, tolerated settings, on AC mode. No respiratory distress noted at this time. With OGT intact, clamped. Alexander cath intact, noyed wtih minimal amount of mark colored urine drained to BSD. RUQ cholecystostomy intact. Noted with brownish discharge. CLARK PICC intact, endorsed by previous shift, unable to have blood return. IVF infusing as ordered. 0850: No any significant changes noted at this time. S/E by Ivan HUGHES, no new order at this time.
[2017-09-13] MEDS: HYDROCODONE/APAP 5/325MG 1 EACH TABLET PO PRN ×2 (10:20→21:06)
[2017-09-13 10:46] LABS: ABG BASE EXCESS -13.6 mmol/L; ABG OXYGEN SATURATION 97.4 % (92.0-98.5); ABG PCO2 17.9 mmHg (35.0-45.0); ABG PH 7.363 (7.350-7.450); ABG PO2 133.5 mmHg (75.0-100.0); AaDO2 95.2 mmHg; COHb 0.2 % (0.5-1.5); O2Hb 96.2 % (94.0-97.0); SITE, ABG Right Radial; VENT MODE, BG CPAP PSV 12
[2017-09-13] MEDS ORDERED: D5 IV ONE (12:00)
[2017-09-13] MEDS ORDERED: NACL IV ONE (12:00)
[2017-09-13] MEDS ORDERED: SODIUM BICARBONATE IV ONE (12:00)
--- NOTE | 2017-09-13 12:00 | NUR ---
RN NOTE 0900: RT placed patient on CPAP, tolerated at this time. 1130: Dr. Ford in the unit aware for the ABG, placed back on AC mode. Family at bedside aware for the POC. 1230: Dr. Carpenter S/E patient aware for low UOP and for the ABG result, with order to add Bicarb on IVF.
[2017-09-13] MEDS ORDERED: IV NS 0.9% 500 ML IV ONE (15:30)
[2017-09-13] MEDS ORDERED: IV NS 0.9% 1,000 ML IV PRN (17:30)
--- NOTE | 2017-09-13 18:18 | NUR ---
RN NOTE Given 500 mL bolus for 3.9 lactic acid. Repeat lactic acid 3.0, Dr. Carpenter ordered another 1L NS bolus. Still low UOP, MD aware. No BM with in the shift. Kept clean, warm and dry. Needs attended.
--- NOTE | 2017-09-13 19:30 | NUR ---
Received patient intubated to mechanical vent on ac mode at prescribed settings.No apparent distress noted.SPO2 100%.Patient open eyes when name called.Patient with generalized edema. Right arm contracted.Extremities elevated on pillows.SB 50's-40's occasional non sustaining.Normotensive. OGT placement verified patent and clamped.NPO status with ivf hydration in progress via CLARK PICC LINE. Site intact.Cholecystomy drain intact with brownish output.FC fo gravity with scanty urine.Turned and repositioned.
--- NOTE | 2017-09-13 19:37 | NUR ---
PT RECEIVED ORALLY INTUBATED WITH A 7.0 ETT SECURED AT 22CM AT THE LIP LINE. PT IS ON THE VENT WITH NOTED SETTINGS. VENT ALARMS ARE SET AND AUDIBLE WITH AMBU BAG BY BEDSIDE. RESEARCH PROGRAM MANAGER CUFF PRESSURE NOTED. VENT IS PLUGGED INTO RED OUTLET. PT SX'D SMALL THICK PALE YELLOW SECRETIONS. NO RESPIRATORY DISTRESS NOTED AT THIS TIME, WILL CONTINUE TO MONITOR.
--- NOTE | 2017-09-13 21:10 | NUR ---
Patient grimacing BP elevated.PRN pain medication Egan administered.
[2017-09-13] MEDS: ATORVASTATIN 10 MG TABLET PO SCH (21:57)
[2017-09-13] MEDS: MORPHINE SULFATE INJ 2 MG/ML DISP.SYRIN IV PRN (23:03)
[2017-09-14] VITALS (53 sets, daily range): BP systolic 88–180; BP diastolic 31–63
[2017-09-14] MEDS ORDERED: IV NS 0.9% 250 ML IV ONE
--- NOTE | 2017-09-14 | NUR ---
Patient resting vs stable.Latest temp 97.Turned and repositioned.Pain medication effective.
[2017-09-14] MEDS: BLOOD SUGAR DIAGNOSTIC 1 EACH STRIP IN SCH ×4 (00:10→17:45)
--- NOTE | 2017-09-14 04:00 | NUR ---
AM care done. VS remains stable.Grimacing another pain medication administered.Will reassess.
[2017-09-14] MEDS: MORPHINE SULFATE INJ 2 MG/ML DISP.SYRIN IV PRN ×2 (04:03→08:11)
[2017-09-14 05:20] LABS: ALANINE AMINOTRANSFERASE 8 U/L (12-78); ALBUMIN 1.6 g/dL (3.4-5.0); ALKALINE PHOSPHATASE 64 U/L (46-116); ASPARTATE AMINOTRANSFERASE 19 U/L (15-37); BILIRUBIN,TOTAL 0.9 mg/dL (0.2-1.0); CARBON DIOXIDE 13 mmol/L (21-32); CHLORIDE 117 mmol/L (98-107); GLUCOSE 208 mg/dL (74-106); POTASSIUM 3.2 mmol/L (3.5-5.1); SODIUM SERUM 145 mmol/L (136-145); TOTAL PROTEIN, SERUM 3.9 g/dL (6.4-8.2); UREA NITROGEN, BLOOD 28 mg/dL (7-18)
[2017-09-14 05:22] LABS: CALCIUM, SERUM 5.8 mg/dL (8.5-10.1)
[2017-09-14] MEDS: ZOSYN IVPB 2.25 G in IV D5W 50ml IV SCH ×2 (05:37→11:39)
--- NOTE | 2017-09-14 07:00 | NUR ---
Appears comfortable.Blood sugar checked q 6hrs.No coverage ordered.Will endorse to AM shift for continuity of care.No BM noted.No changes from cholecystostomy drainage.Turned and repositioned.
[2017-09-14 07:47] LABS: ABG BASE EXCESS -12.4 mmol/L; ABG OXYGEN SATURATION 96.5 % (92.0-98.5); ABG PCO2 20.1 mmHg (35.0-45.0); ABG PH 7.368 (7.350-7.450); ABG PO2 109.7 mmHg (75.0-100.0); AaDO2 116.5 mmHg; COHb 0.2 % (0.5-1.5); MetHb 1.6 % (0.0-1.5); O2Hb 94.8 % (94.0-97.0); SITE, ABG Right Radial; VENT MODE, BG AC 12 400 +5 35%
[2017-09-14] MEDS: PANTOPRAZOLE 40 MG VIAL IV SCH (08:08)
[2017-09-14] MEDS: DAKINS QUARTER STRENGTH (0.125%) 480 ML BOTTLE TOP SCH (08:09)
[2017-09-14] MEDS: CARVEDILOL 3.125 MG TABLET PO SCH ×2 (08:10→23:40)
--- NOTE | 2017-09-14 08:30 | NUR ---
ICU/RN: Tim Love, AED TRAINER at bedside discussing POC with pt daughter at bedside. Weaning trials ongoing. Labs and imaging reviewed.
[2017-09-14] MEDS ORDERED: VANCOMYCIN 500 MG in IV D5W 100 ML IV SCH (09:00)
[2017-09-14] MEDS ORDERED: Calcium Gluconate 0.465 MEQ/ML VIAL IV ONE (09:30)
[2017-09-14] MEDS: Sodium Bicarbonate 100 MEQ in IV 1/2NS 1000 ML 1,000 ML IV PRN (10:06)
[2017-09-14] MEDS ORDERED: POTASSIUM CHLORIDE 20 MEQ TAB.PRT.SR PO ONE (10:30)
[2017-09-14] MEDS: POTASSIUM CL. PREMIX PERIPHER. 50 ML IV SCH ×4 (10:45→14:40)
--- NOTE | 2017-09-14 10:45 | NUR ---
ICU/RN: Placed back on AC mode per Dr Ford's orders. Will wait until HCO3 increases before proceeding with another weaning trial per Dr Ford.
[2017-09-14] MEDS: GLUCERNA 1.2 1,000 ML BOTTLE NG PRN (12:36)
[2017-09-14 12:48] LABS: BASOPHILS % (AUTO) 0.5 % (0.0-2.0); EOSINOPHILS % (AUTO) 0.2 % (0.0-6.0); HEMATOCRIT 22 % (33-45); HEMOGLOBIN 7.1 g/dL (11.5-14.8); LYMPHOCYTES # (AUTO) 2.6 /CMM (0.8-4.8); LYMPHOCYTES % (AUTO) 26.1 % (20.0-44.0); MEAN CORPUSCULAR HEMOGLOBIN 32 PG (26.0-33.0); MEAN CORPUSCULAR HGB CONC 33 g/dl (31.0-36.0); MEAN CORPUSCULAR VOLUME 96 fL (82-100); MONOCYTES % (AUTO) 0.2 % (2.0-12.0); NEUTROPHILS # (AUTO) 7.2 /CMM (1.8-8.9); RDW COEFFICIENT OF VARIATION 15.9 (11.5-15.0); RED BLOOD CELL COUNT(AUTO) 2.25 MIL/uL (4.0-5.2); WHITE BLOOD COUNT (AUTO) 9.9 K/uL (4.3-11.0)
[2017-09-14 13:01] LABS: PLATELET COUNT (AUTO) 10 /CMM (150-450)
[2017-09-14 13:38] LABS: BAND % (MANUAL) 11 % (0.0-5.0); LYMPHOCYTES % (MANUAL) 9 % (16-48); NEUTROPHILS % (MANUAL) 80 (42-76)
--- NOTE | 2017-09-14 15:00 | NUR ---
ICU/RN: Bed bath, wound care rendered. Skin tear noted on perineal area. Pt with generalized edema, anasarca. Cleansed, dried and area protected with mepilex.
[2017-09-14 15:21] LABS: INR 1.46 (0.87-1.13)
[2017-09-14] MEDS: HYDROCODONE/APAP 5/325MG 1 EACH TABLET PO PRN (16:13)
[2017-09-14] MEDS ORDERED: CEFTRIAXONE 2 G in IV NS 0.9% 100 ML IV SCH (17:00)
--- NOTE | 2017-09-14 17:18 | NUR ---
ICU/RN: DIC Panel results relayed to Dr Magallon; orders for 10U cryoprecipitate and 1U platelets ordered. Noted and carried out. assistant professor updated.
[2017-09-14] MEDS: METRONIDAZOLE 500MG/ NS 100ML 500 MG in PREMIX 1 EA IV SCH (17:45)
--- NOTE | 2017-09-14 19:06 | NUR ---
PT RECEIVED ORALLY INTUBATED WITH A 7.0 ETT SECURED AT 22CM AT THE LIP LINE. PT IS ON THE VENT WITH NOTED SETTINGS. VENT ALARMS ARE SET AND AUDIBLE WITH AMBU BAG BY BEDSIDE. PATIENT SAFETY MANAGER CUFF PRESSURE NOTED. VENT IS PLUGGED INTO RED OUTLET. PT SX'D SMALL HINTON SECRETIONS. NO RESPIRATORY DISTRESS NOTED AT THIS TIME, WILL CONTINUE TO MONITOR.
--- NOTE | 2017-09-14 19:15 | NUR ---
ICU NOTES RECEIVED PT W/ EYES OPEN,DOES NOT TRACK,NOR FOLLOW COMMANDS.ORALLY INTUBATED ON VENT 35% W/ SATURATION OF 100%.SUCTIONED ORALLY W/ MODERATE AMT OF TANNISH COLORED SECRETIONS,SCANT AMT.FROM ETT.ON TUBE FEEDING OF GLUCERNA AT 30ML/HR.NO RESIDUAL OBTAINED.CHOLECYSTECTOMY DRAIN W/ SCANT BILIOUS DRAINAGE.ANURAG GROSS ON.SCANT URINE. Addendum: 09/14/17 at 2136 by CHRISTOS LAMBERT RN CHOLECYSTOSTOMY
[2017-09-14] MEDS ORDERED: IV NS 0.9% 250 ML IV PRN (19:30)
--- NOTE | 2017-09-14 21:44 | NUR ---
ICU NOTES 10 UNITS CRYOPRECIPITATE TRANSFUSED WITHOUT TRANSFUSION REACTION NOTED.
[2017-09-14] MEDS: ATORVASTATIN 10 MG TABLET PO SCH (23:39)
[2017-09-15] VITALS (42 sets, daily range): BP systolic 97–179; BP diastolic 38–76
--- NOTE | 2017-09-15 | NUR ---
ICU/RN I UNIT PLATELET INFUSED WITHOUT REACTION.VITAL SIGNS STABLE.PT REMAINS ON ANURAG HUGGER WITH TEMP OF 98.9.ACCU FVBVH=683,NO INSULIN COVERAGE.
[2017-09-15] MEDS: Sodium Bicarbonate 100 MEQ in IV 1/2NS 1000 ML 1,000 ML IV PRN ×2 (00:03→13:55)
[2017-09-15] MEDS: METRONIDAZOLE 500MG/ NS 100ML 500 MG in PREMIX 1 EA IV SCH ×2 (00:06→08:43)
[2017-09-15] MEDS: BLOOD SUGAR DIAGNOSTIC 1 EACH STRIP IN SCH ×4 (00:07→18:13)
[2017-09-15 04:45] LABS: BASOPHILS % (AUTO) 0.3 % (0.0-2.0); EOSINOPHILS % (AUTO) 0.4 % (0.0-6.0); HEMATOCRIT 24 % (33-45); HEMOGLOBIN 7.9 g/dL (11.5-14.8); LYMPHOCYTES # (AUTO) 3.2 /CMM (0.8-4.8); LYMPHOCYTES % (AUTO) 26.4 % (20.0-44.0); MEAN CORPUSCULAR HEMOGLOBIN 31 PG (26.0-33.0); MEAN CORPUSCULAR HGB CONC 32 g/dl (31.0-36.0); MEAN CORPUSCULAR VOLUME 97 fL (82-100); MONOCYTES % (AUTO) 0.4 % (2.0-12.0); NEUTROPHILS # (AUTO) 8.8 /CMM (1.8-8.9); NEUTROPHILS % (AUTO) 72.5 % (43.0-81.0); PLATELET COUNT (AUTO) 110 /CMM (150-450); RDW COEFFICIENT OF VARIATION 16.2 (11.5-15.0); RED BLOOD CELL COUNT(AUTO) 2.51 MIL/uL (4.0-5.2); WHITE BLOOD COUNT (AUTO) 12.1 K/uL (4.3-11.0)
--- NOTE | 2017-09-15 05:00 | NUR ---
VENT SETTINGS CHANGED TO CPAP, PS 12, PEEP OF 5 PER MD'S ORDER. SPO2 100% , NO RESPIRATORY DISTRESS NOTED AT THIS TIME
[2017-09-15 05:03] LABS: ALANINE AMINOTRANSFERASE 10 U/L (12-78); ALBUMIN 1.8 g/dL (3.4-5.0); ALKALINE PHOSPHATASE 77 U/L (46-116); ASPARTATE AMINOTRANSFERASE 19 U/L (15-37); BILIRUBIN,TOTAL 1.4 mg/dL (0.2-1.0); CALCIUM, SERUM 6.4 mg/dL (8.5-10.1); CARBON DIOXIDE 16 mmol/L (21-32); CHLORIDE 117 mmol/L (98-107); CREATININE 1.1 mg/dL (0.6-1.3); GLUCOSE 124 mg/dL (74-106); MAGNESIUM 1.5 mg/dL (1.8-2.4); PHOSPHORUS 3.3 mg/dL (2.5-4.9); SODIUM SERUM 148 mmol/L (136-145); TOTAL PROTEIN, SERUM 4.7 g/dL (6.4-8.2); UREA NITROGEN, BLOOD 29 mg/dL (7-18)
[2017-09-15 05:04] LABS: IRON, SERUM 40 ug/dl (50-175); TOTAL IRON BINDING CAPACITY 68 ug/dl (250-450)
[2017-09-15 05:18] LABS: FERRITIN 494 ng/mL (8-388)
--- NOTE | 2017-09-15 05:45 | NUR ---
ICU/RN AT BEDSIDE EXAMINE PT.NOTICED SBP 160-170MMHG.AND WITH LOW TIDAL VOLUME OF 245-281 ON CPAP5,PSV12 .INFORMED RT TO PUT PT. BACK ON A/C MODE AT 0550.
--- NOTE | 2017-09-15 05:50 | NUR ---
DUE TO LOW TIDAL VOLUME ,PT PLACED BACK TO PREVIOUS SETTINGS, AC 12, 400, PEEP OF 5, FIO2 35% PER DR. GANN ORDER. AMANDA SHER NOTIFIED.
--- NOTE | 2017-09-15 07:15 | NUR ---
ICU/RN REPORT AND CARE OF PT.GIVEN TO CAROLE PATEL.
--- NOTE | 2017-09-15 07:15 | NUR ---
RECEIVED PATIENT.PER RN PATIENT FAILED SIMV TRIAL ON AC MODE. CAMARGO IN PLACE DRAINING TO GRAVITY. PICC LINE IN PLACE C/D/I/P HOWEVER NO BLOOD RETURN; WILL F/U. IVF PER ORDER. TUBE FEEDING RUNNING PER ORDER NO RESIDUAL NOTED. HR 70'S NSR. TOLERATING AMY SETTINGS NO SOB, DIFFICULTY BREATHING, RESPIRATIONS EQUAL AND UNLABORED. PATIENT HAD GENERALIZED EDEMA, DEPENDENT EDEMA ON ARMS AND WEEPING; EXTREMITIES ELEVATED. PATIENT AWAKE TO LIGHT TOUCH AND ALERT WILL TRACK WITH EYES HOWEVER LETHARGIC. SAFETY, ASPIRATION, AND SKIN PRECAUTIONS IN PLACE. WILL MONITOR
--- NOTE | 2017-09-15 07:40 | NUR ---
RT PATIENT REC'D ORALLY INTUBATED ON [facility] VENT WITH ORDERED SETTINGS. VENT ALARMS CHECKED + AUDIBLE. CUFF PRESSURE CHECKED INFORMATION TECHNOLOGY ASSOCIATE. ETT SECURED VIA ANCHOR FAST IN PROPER POSITION. AIRWAY SUCTIONED WITH SMALL AMT OF PALE SEMITHICK SECRETIONS. AMBU BAG AT [facility]. CONT CURRENT PLAN OF RESP CARE. Addendum: 09/15/17 at 1214 by DYLAN BONILLA RT Amended: Links added.
[2017-09-15] MEDS: PANTOPRAZOLE 40 MG VIAL IV SCH (08:43)
[2017-09-15] MEDS: Z GUARD REMEDY 2 OZ OINT TP PRN ×2 (08:43→19:00)
[2017-09-15] MEDS: DAKINS QUARTER STRENGTH (0.125%) 480 ML BOTTLE TOP SCH (08:45)
[2017-09-15] MEDS: CARVEDILOL 3.125 MG TABLET PO SCH ×2 (08:56→21:41)
--- NOTE | 2017-09-15 09:01 | NUR ---
Jr DAMIAN AT BEDSIDE UPDATED ON PATIENT VS, LABS, NO OUTPUT LAST NIGHT FROM DRAIN. PER ORDER FLUSHED AND PATENT. ABDOMEN FIRM AND SLIGHTLY DISTENDED. PATIENT CONTINUES WITH DECREASED OUTPUT HOWEVER CR HOLDING. NO NEW ORDERS. NOTIFIED INSTITUTIONAL AIDE PATIENT PICC HAS NO BLOOD RETURN. PENDING PICC RN.
--- NOTE | 2017-09-15 09:23 | NUR ---
ELDA GUAMAN AT BEDSIDE UPDATED ON PATIENT CONDITION.
[2017-09-15 10:30] LABS: INR 1.2 (0.87-1.13)
[2017-09-15] MEDS: Magnesium 1GM/D5W 100ML PREMIX 100 ML IV SCH ×3 (10:40→12:51)
[2017-09-15 11:00] LABS: D-DIMER 13.85 mg/L(FEU (0.17-0.50)
--- NOTE | 2017-09-15 11:30 | NUR ---
NOTIFIED DAMIAN PATIENT COAG LABS. PATIENT IN DIC. NO OTHER ORDERS CONTINUE TREATMENT, IVF AND PRN TRANSFUSIONS.
--- NOTE | 2017-09-15 11:43 | NUR ---
PATIENT GRIMACING WITH MOVEMENT AND TURNING. PRN TIMOTHY
[2017-09-15] MEDS: HYDROCODONE/APAP 5/325MG 1 EACH TABLET PO PRN (11:44)
[2017-09-15] MEDS: GLUCERNA 1.2 1,000 ML BOTTLE NG PRN (11:45)
--- NOTE | 2017-09-15 12:10 | NUR ---
DR HERNANDEZ AT BEDSIDE. UPDATED ON PATIENT CONDITION, C/S RETURNED FROM GALLBLADDER FLUIDS. NO NEW ORDERS AT THIS TIME
[2017-09-15] MEDS: PIPERACILLIN /TAZOBACTAM 3.375 G in IV D5W 50 ML IV SCH ×2 (13:55→19:00)
--- NOTE | 2017-09-15 17:37 | NUR ---
PER NATI SALAZAR TO ORDER MILD SLIDING SCALE INSULIN
--- NOTE | 2017-09-15 18:43 | NUR ---
PATIENT STABLE. ALL DUE MEDS GIVEN AND ALL NEEDS ASSESSED. FLACC 0. TOLERATING VENT NO SOB, DIFFICULTY BREATHING. CAMARGO CATH IN PLACE DRAINING TO GRAVITY. IV LINE C/D/I/P PENDING MD/RN TO ATTEMPT TO GET BLOOD RETURN. MESSAGE SENT TO DR WALLS. IVF PER ORDER. RIGHT DRAIN C/D/I DRESSING CHANGED STERILE PROTOCOL FOLLOWED. NO RESIDUAL NOTED AT THIS TIME WITH TUBE FEEDING RUNNING PER ORDER. SAFETY, SKIN, AND ASPIRATION PRECAUTIONS IN PLACE. WILL ENDORSE CARE TO RN FOR ASIA.
--- NOTE | 2017-09-15 20:00 | NUR ---
GAG WRITER - REC'D VERBAL REPORT FROM CAROLE RN. REC'D PT. VENTED/AC-12, TV-400,35% & PEEP 5. O2 SATS = 98%. OGT HAS TF GLUCERNA INFUSING AT 40 CC/HR. MARY GROSS IS UPON PT. TO KEEP HER WARM. WHEN OFF, PT. BECOMES HYPOTHERMIC. DRAWER IN JACQUARD LOOM IS INTERPRETING COMMANDS IN TAGALOG, & PT. STARTED FOLLOWING COMMANDS. NOTHING IN ARMENIAN. FUNC. QUAD. SEVERE BILAT. FOOTDROP, NO RESPONSE TO PLANTAR STIMULUS. SEVERE BUE WEEPING/OOZING SEROSANGUINEOUS FLUIDS. BUE'S ARE WRAPPED IN CHUX. LUE PICC LINE HAS 0.9%NS @ TKO & 0.45%NS W/2 AMPS OF BICARB (100). BILAT. HANDS, ESPECIALLY FINGERS & RT.TOES ARE BLUISH/PURPLE. 3+ PITTING EDEMA TO BODY, DEB.FEET. CAMARGO CATH TO GRAVITY. CONT. POC. Addendum: 09/15/17 at 2049 by OLVIN ARRIAGA RN NEPHROSTOMY TUBE TO GRAVITY W/BROWN OUTPUT. Addendum: 09/15/17 at 2054 by OLVIN ARRIAGA RN NOTED; CHOLECYSTOSTOMY TUBE.
[2017-09-15] MEDS: ATORVASTATIN 10 MG TABLET PO SCH (21:40)
[2017-09-16] VITALS (40 sets, daily range): BP systolic 98–167; BP diastolic 38–80
[2017-09-16] MEDS: INSULIN REGULAR, HUMAN 100 UNIT/ML 3 ML VIAL SQ PRN ×3 (00:29→17:16)
[2017-09-16] MEDS: BLOOD SUGAR DIAGNOSTIC 1 EACH STRIP IN SCH ×4 (00:31→17:05)
[2017-09-16] MEDS: PIPERACILLIN /TAZOBACTAM 3.375 G in IV D5W 50 ML IV SCH ×4 (00:32→18:30)
--- NOTE | 2017-09-16 02:00 | NUR ---
THIMBLE PRESS OPERATOR - PT. WAS ADM. A COMPLETE BEDBATH W/ORAL,VENT, OGT, FRANCO & SKIN/WOUND CARE ADM. PT'S CHOLECYSTOST- RON DRAIN IS INTACT & DRAINING WELL. PT'S BUE'S ARE SEEPING SEROSANG. DRAINAGE. CHUX'S ARE WRAPPED AROUND BUE'S & CHANGED FREQUENTLY. BETADINE TO RT.GREAT TOE & ALL LEFT TOES. FEET ARE ELEVATED & OPEN TO AIR TO DRY, WHILE MARY EDWARDBAIRONER IS ATOP OF HER. PT.IS "DNR" STATUS. BS WAS #160 AT MD. PT.WAS COVERED W/2 UNITS OF INSULIN. OGT HAS GOOD PLACEMENT AUSC. CONT.POC.
[2017-09-16 04:33] LABS: HEMOGLOBIN 8.1 g/dL (11.5-14.8); LYMPHOCYTES # (AUTO) 3.4 /CMM (0.8-4.8)
[2017-09-16 04:39] LABS: BASOPHILS # (AUTO) 0.3 /CMM (0.0-0.2); NEUTROPHILS # (AUTO) 9.3 /CMM (1.8-8.9); WHITE BLOOD COUNT (AUTO) 13.1 K/uL (4.3-11.0)
[2017-09-16 04:44] LABS: CALCIUM, SERUM 6.4 mg/dL (8.5-10.1); CARBON DIOXIDE 21 mmol/L (21-32); CHLORIDE 115 mmol/L (98-107); CREATININE 1.1 mg/dL (0.6-1.3); GLUCOSE 139 mg/dL (74-106); MAGNESIUM 2.1 mg/dL (1.8-2.4); PHOSPHORUS 2.5 mg/dL (2.5-4.9); POTASSIUM 3.6 mmol/L (3.5-5.1); SODIUM SERUM 148 mmol/L (136-145); UREA NITROGEN, BLOOD 26 mg/dL (7-18)
[2017-09-16 04:45] LABS: BASOPHILS % (AUTO) 2.6 % (0.0-2.0); EOSINOPHILS % (AUTO) 0.6 % (0.0-6.0); HEMATOCRIT 25 % (33-45); LYMPHOCYTES % (AUTO) 25.5 % (20.0-44.0); MEAN CORPUSCULAR HEMOGLOBIN 32 PG (26.0-33.0); MEAN CORPUSCULAR HGB CONC 33 g/dl (31.0-36.0); MEAN CORPUSCULAR VOLUME 96 fL (82-100); MONOCYTES % (AUTO) 0.2 % (2.0-12.0); NEUTROPHILS % (AUTO) 71.1 % (43.0-81.0); PLATELET COUNT (AUTO) 65 /CMM (150-450); RDW COEFFICIENT OF VARIATION 15.4 (11.5-15.0); RED BLOOD CELL COUNT(AUTO) 2.56 MIL/uL (4.0-5.2)
[2017-09-16 04:52] LABS: LYMPHOCYTES % (MANUAL) 26 % (16-48); MONOCYTES % (MANUAL) 4 % (0-11.0); NEUTROPHILS % (MANUAL) 70 (42-76)
[2017-09-16] MEDS: Sodium Bicarbonate 100 MEQ in IV 1/2NS 1000 ML 1,000 ML IV PRN (06:32)
--- NOTE | 2017-09-16 06:50 | NUR ---
PATROL GUARD - PT.'S BUE'S WERE REWRAPPED W/TOWELS & CHUX'S, SEVERAL TIMES THRU-OUT THE SHIFT. LUE IS VERY BRUISED & WEEPING MORE THAN RUE. BETADINE ADM. TO BILAT. TOES. PER MD ORDER. CAMARGO CATH PUT OUT 175CC ONLY. CHOLECYST. DRAIN PUT OUT 100CC ROUGHLY. NOTED. THERE IS A NOTED DIFFERENCE OF 6 LBS W/THE DAILY WEIGHT INTERVENTION. DOCUMENTED. PT. TOLERATING TF WELL. VERBAL REPORT ENDORSED AT BEDSIDE W/ARMINDA. CONT.POC
--- NOTE | 2017-09-16 07:26 | NUR ---
RT PATIENT REC'D ORALLY INTUBATED ON [facility] VENT WITH ORDERED SETTINGS TOLERATED WELL. VENT ALARMS CHECKED + AUDIBLE. CUFF PRESSURE CHECKED SUPERVISOR CUTTING AND SEWING ROOM. PATIENT AIRWAY SUCTIONED WITH SMALL AMT OF PALE SEMITHICK SECRETIONS. PATIENT AWAKE, DOES NOT FOLLOW VERBAL COMMANDS, NO SOB NOTED. AMBU BAG AT HOB Addendum: 09/16/17 at 0744 by DYLAN BONILLA RT Amended: Links added.
--- NOTE | 2017-09-16 07:45 | NUR ---
ICU/RN: Pt received in bed, no distress noted, intubated, tolerating current settings. Able to follow some commands in Tagalog, c/o pain 8/10 with facial grimacing. Will administer pain meds for relief. Tolerating TF with 5cc residual. IVF infusing well through CLARK PICC. Cholecystomy drain with purulent and sanguineous drainage after flushing. FC draining minimal urine to gravity. Dressings C/D/I. Safety measures in place. Will cont to monitor pt.
[2017-09-16] MEDS: PANTOPRAZOLE 40 MG VIAL IV SCH (08:03)
[2017-09-16] MEDS: Z GUARD REMEDY 2 OZ OINT TP PRN (08:03)
[2017-09-16] MEDS: DAKINS QUARTER STRENGTH (0.125%) 480 ML BOTTLE TOP SCH (08:05)
[2017-09-16] MEDS: HYDROCODONE/APAP 5/325MG 1 EACH TABLET PO PRN (08:06)
--- NOTE | 2017-09-16 08:40 | NUR ---
ICU/RN: Tim Love rounds, informed of labs, pt status, sanguineous drainage from cholecystomy tube. For possible weaning today. Pending ABG and procalcitonin. Awaiting orders.
--- NOTE | 2017-09-16 08:50 | NUR ---
ICU/RN: Dr Ford rounds; orders initiation of CPAP trial, ABG 1 hr after vent change. Noted and carried out.
--- NOTE | 2017-09-16 08:55 | NUR ---
RT PER DR MTZ ORDER PATIENT PLACED ON SPONTANEOUS BREATHING TRIAL CPAP +12. VENT ALARMS ADJUSTED. AMANDA AWARE. ABG IN ONE HOUR Addendum: 09/16/17 at 0857 by DYLAN BONILLA RT Amended: Links added.
[2017-09-16] MEDS: CARVEDILOL 3.125 MG TABLET PO SCH ×3 (09:00→22:55)
[2017-09-16] MEDS: ALBUMIN 25% 25 GM in PREMIX 1 EA IV SCH ×3 (09:47→23:25)
[2017-09-16 10:02] LABS: ABG OXYGEN SATURATION 96.4 % (92.0-98.5); ABG PCO2 30.9 mmHg (35.0-45.0); ABG PH 7.459 (7.350-7.450); ABG PO2 97.7 mmHg (75.0-100.0); AaDO2 115.9 mmHg; MetHb 1.2 % (0.0-1.5); O2Hb 95.2 % (94.0-97.0); PEEP,BG 5 cm H2O; SITE, ABG Right Radial; VENT MODE, BG CPAP 12
[2017-09-16] MEDS: IV 1/2NS 1000 ML 1,000 ML IV PRN (10:48)
--- NOTE | 2017-09-16 11:15 | NUR ---
ICU/RN: Noted with SBP >160mmHg, Dr Alfredo salmon, notified. New orders noted and carried out.
[2017-09-16] MEDS: AMLODIPINE BESYLATE 5 MG TABLET PO SCH (11:26)
[2017-09-16] MEDS ORDERED: hydrALAZINE HCL IV 20 MG VIAL IV PRN (11:30)
[2017-09-16] MEDS: GLUCERNA 1.2 1,000 ML BOTTLE NG PRN (12:32)
--- NOTE | 2017-09-16 16:50 | NUR ---
ICU/RN: Informed Tim Love, FERRY OPERATOR, pt with total of 650ml of serosanguineous drainage from biliary drain. H/H ordered by FERRY OPERATOR.
[2017-09-16 18:06] LABS: HEMOGLOBIN 6.3 g/dL (11.5-14.8)
--- NOTE | 2017-09-16 18:25 | NUR ---
ICU/RN: Received results for critical H/H. Orders received from Tim Love NP.
--- NOTE | 2017-09-16 19:00 | NUR ---
ICU/RN: Dr Magallon rounds; informed of H/H drop and drainage output. Pending DIC panel result prior to blood transfusion. Standing orders noted. Bedside report given to pm RN for [facility].
--- NOTE | 2017-09-16 19:30 | NUR ---
TECHNICAL MARKETING ENGINEER INITIAL SHIFT NOTES RECEIVED PATIENT IN BED, ASLEEP, EYES CLOSED. PATIENT IS ALERT AND ORIENTED X1, FOLLOWS COMMANDS IN TAGALOG, NODS YES/NO. PATIENT IS ORALLY INTUBATED, ETT 7.0 22 CM AT LIP LINE, ON CPAP MODE, PSV OF 12, TV 400, FIO2 35%, TOLERATING WELL, FREE FROM ANY S/S OF RESPIRATORY DISTRESS, SUCTIONED FOR AIRWAY CLEARANCE. BAIRHUGGER FOR HYPOTHERMIA, CURRENTLY 96.0 DEGREES, TEMP GOING UP, ONGOING MONITORING. CLARK PICC PATENT AND INTACT, FLUSHED WITH NS, FREE FROM ANY S/S OF INFILTRATION OR PHLEBITIS, NO BLOOD RETURN NOTED. OGT PATENT AND INTACT, ONGOING TUBE FEEDINGS PRESCRIBED, NO GASTRIC RESIDUALS NOTED AT THIS TIME. PATIENT WITH ORDERS FOR PRBC TRANSFUSION X1, AWAITING CALL FROM BLOOD BANK. WILL CONTINUE TO CLOSELY MONITOR THE PATIENT. BED IN LOWEST AND LOCKED POSITION WITH HOB ELEVATED.
--- NOTE | 2017-09-16 20:12 | NUR ---
RECEIVED PT INTUBATED 7.0 ETT SECURED AT 22CM AT THE LIP. PT IS AWAKE AND NO DISTRESS. TOLERATING VENT SETTINGS. B/S CLR DM. SX'D FOR SML AMT OF THICK WHITE SECRETIONS. VENT ALARMS SET AND AUDIBLE. AMBU BAG AT BEDSIDE. ETT SECURED, CUFF CAP PARTS CUTTER. VENT PLUGGED INTO RED OUTLET. WILL CONTINUE TO MONITOR. Addendum: 09/16/17 at 2014 by ESTEVAN THOMAS RT Amended: Links added.
[2017-09-16 22:29] LABS: OCCULT BLOOD STOOL NEGATIVE (NEGATIVE)
[2017-09-16] MEDS: ATORVASTATIN 10 MG TABLET PO SCH (22:55)
[2017-09-17] VITALS (35 sets, daily range): BP systolic 113–156; BP diastolic 52–75
--- NOTE | 2017-09-17 | NUR ---
RN NOTES PRBC TRANSFUSION X1 COMPLETE, PATIENT TOLERATED PROCEDURE WELL, FREE FROM ANY S/S OF ADVERSE BLOOD TRANSFUSION REACTION
[2017-09-17] MEDS: BLOOD SUGAR DIAGNOSTIC 1 EACH STRIP IN SCH ×5 (00:39→23:55)
[2017-09-17] MEDS: PIPERACILLIN /TAZOBACTAM 3.375 G in IV D5W 50 ML IV SCH ×4 (00:39→18:13)
[2017-09-17] MEDS: IV 1/2NS 1000 ML 1,000 ML IV PRN ×2 (00:39→16:26)
[2017-09-17 00:46] LABS: INR 1.62 (0.87-1.13)
[2017-09-17 01:02] LABS: D-DIMER 7.95 mg/L(FEU (0.17-0.50)
--- NOTE | 2017-09-17 01:26 | NUR ---
RN NOTES FIBRINOGEN LEVEL = 186. NO CRYOPRECIPITATE TRANSFUSION AT THIS TIME PER DR DOMINGUEZ'S STANDING ORDERS
[2017-09-17 03:50] LABS: BASOPHILS # (AUTO) 0.1 /CMM (0.0-0.2); BASOPHILS % (AUTO) 0.8 % (0.0-2.0); EOSINOPHILS % (AUTO) 1.2 % (0.0-6.0); HEMATOCRIT 28 % (33-45); HEMOGLOBIN 9.3 g/dL (11.5-14.8); LYMPHOCYTES # (AUTO) 3.2 /CMM (0.8-4.8); LYMPHOCYTES % (AUTO) 33.8 % (20.0-44.0); MEAN CORPUSCULAR HEMOGLOBIN 31 PG (26.0-33.0); MEAN CORPUSCULAR HGB CONC 33 g/dl (31.0-36.0); MEAN CORPUSCULAR VOLUME 95 fL (82-100); MONOCYTES % (AUTO) 0.5 % (2.0-12.0); NEUTROPHILS % (AUTO) 63.7 % (43.0-81.0); PLATELET COUNT (AUTO) 51 /CMM (150-450); RDW COEFFICIENT OF VARIATION 15.6 (11.5-15.0); RED BLOOD CELL COUNT(AUTO) 2.95 MIL/uL (4.0-5.2); WHITE BLOOD COUNT (AUTO) 9.4 K/uL (4.3-11.0)
[2017-09-17 04:06] LABS: CALCIUM, SERUM 6.7 mg/dL (8.5-10.1); CARBON DIOXIDE 22 mmol/L (21-32); CHLORIDE 111 mmol/L (98-107); CREATININE 0.9 mg/dL (0.6-1.3); GLUCOSE 134 mg/dL (74-106); POTASSIUM 3.3 mmol/L (3.5-5.1); SODIUM SERUM 145 mmol/L (136-145); UREA NITROGEN, BLOOD 26 mg/dL (7-18)
[2017-09-17 04:15] LABS: BAND % (MANUAL) 4 % (0.0-5.0); EOSINOPHILS % (MANUAL) 1 % (0-4); LYMPHOCYTES % (MANUAL) 35 % (16-48); NEUTROPHILS % (MANUAL) 60 (42-76)
[2017-09-17 04:22] LABS: INR 1.73 (0.87-1.13)
[2017-09-17 04:41] LABS: D-DIMER 6.6 mg/L(FEU (0.17-0.50)
[2017-09-17] MEDS: ALBUMIN 25% 25 GM in PREMIX 1 EA IV SCH (04:49)
[2017-09-17] MEDS: INSULIN REGULAR, HUMAN 100 UNIT/ML 3 ML VIAL SQ PRN ×3 (06:53→23:57)
--- NOTE | 2017-09-17 07:00 | NUR ---
CHAIR TRIMMER CLOSING NOTES PATIENT RESTING COMFORTABLY IN BED. WOPUND CARE REDNERED PRESCRIBED. RUQ CHOLECYSTOSTOMY WITH SEROSANGUINOUS OUTPUT, 950 ML THROUGHOUT THE SHIFT. WILL ENDORSE THE PATIENT TO THE AM SHIFT NURSE FOR CONTINUITY OF CARE
[2017-09-17] MEDS: PANTOPRAZOLE 40 MG VIAL IV SCH (08:05)
[2017-09-17] MEDS: CARVEDILOL 3.125 MG TABLET PO SCH ×2 (08:06→21:10)
[2017-09-17] MEDS: Z GUARD REMEDY 2 OZ OINT TP PRN (08:06)
[2017-09-17] MEDS: AMLODIPINE BESYLATE 5 MG TABLET PO SCH (08:06)
[2017-09-17] MEDS: DAKINS QUARTER STRENGTH (0.125%) 480 ML BOTTLE TOP SCH (08:38)
[2017-09-17] MEDS ORDERED: POTASSIUM CHLORIDE 20 MEQ POWDER PACKET NG SCH (09:30)
--- NOTE | 2017-09-17 09:45 | NUR ---
ICU/RN: Dr Ford at bedside with Abiola, daughter regarding POC and extubation, code status. Daughter to return in am after discussing options with family regarding decision comfort care vs tracheostomy.
[2017-09-17] MEDS: GLUCERNA 1.2 1,000 ML BOTTLE NG PRN (09:49)
--- NOTE | 2017-09-17 13:07 | NUR ---
ICU/RN: Blood transfusion initiated with HD RN Hussain, will monitor for AE.
[2017-09-17 13:13] LABS: CALCITRIOL VIT D,1, 25 DIHYDRO 31.6 pg/mL (19.9-79.3)
--- NOTE | 2017-09-17 13:15 | NUR ---
ICU/RN: Lian Barrios at bedside; updated on pt status, informed of L ear and R shoulder non blanching redness, new orders noted and carried out.
--- NOTE | 2017-09-17 14:30 | NUR ---
ICU/RN: Jua nM Ordoñez, AEROSPACE ENGINEER rounds; updated on pt status. Informed of labs, plan to decide comfort care vs tracheostomy tomorrow am with Dr Ford
--- NOTE | 2017-09-17 14:58 | NUR ---
RT END OF THE SHIFT REPORT' PT 82 Y OLD FEMALE RECEIVED @0700 AM INTUBATED ETT # 7.0 @ 22CM THE LIP. PT IS AWAKE AND NO DISTRESS. TOLERATING VENT SETTINGS. B/S CLEAR DIMINISHED, SX'D FOR SML AMT OF THICK WHITE/YELLOW SECRETIONS. VENT ALARMS SET AND AUDIBLE. AMBU BAG AT BEDSIDE. EQUAL CHEST RISE NOTED, CUFF TECHNICAL PRODUCER DONE. VENT PLUGGED INTO RED OUTLET. PT. REMAIN STABLE NO CHANGES. PER WILL CONTINUE TO MONITOR. REPORT WILL PASS TO PM SHIFT. Addendum: 09/17/17 at 1501 by KATARINA BALBUENA RT Amended: Links added.
--- NOTE | 2017-09-17 15:00 | NUR ---
ICU/RN: Wound care, bed bath rendered. Pt with generalized weeping edema, kept clean and dry. Nystatin powder applied to affected areas. Cholecystostomy tube dressing changed; weeping skin noted around insertion site. Pt tolerated well. Will cont to monitor pt.
[2017-09-17] MEDS ORDERED: NYSTATIN TOP POWDER 15 GM BOTTLE TP SCH (17:00)
[2017-09-17] MEDS: NYSTATIN TOP POWDER 15 GM BOTTLE TP SCH (18:12)
--- NOTE | 2017-09-17 19:15 | NUR ---
ICU/RN: Bedside report given to pm RN for AS[facility]. Pt remains comfortable, no distress, cholecystostomy bag draining, suction valve compressed. FC to gravity. VSS.
--- NOTE | 2017-09-17 19:47 | NUR ---
RECEIVED PT INTUBATED 7.0 ETT SECURED AT 22CM AT THE LIP. NO DISTRESS. TOLERATING VENT SETTINGS. B/S CLR DM. VENT ALARMS SET AND AUDIBLE. AMBU BAG AT BEDSIDE. ETT SECURED, CUFF FUNERAL WORKERS. VENT PLUGGED INTO RED OUTLET. WILL CONTINUE TO MONITOR. Addendum: 09/17/17 at 1948 by FLAVIO MCGRAW RT Amended: Links added.
--- NOTE | 2017-09-17 20:00 | NUR ---
HYDRO ELECTRIC STATION OPERATOR - NOTES - RECEIVED PATIENT IN BED, AWAKE PATIENT IS ALERT AND ORIENTED X1, FOLLOWS COMMANDS IN TAGALOG, NODS YES/NO. PATIENT IS ORALLY INTUBATED, ETT 7.0 22 CM AT LIP LINE, ON CPAP MODE, PSV OF 12, TV 400, FIO2 35%, PEEP 5.0 TOLERATING WELL, FREE FROM ANY S/S OF RESPIRATORY DISTRESS, SUCTIONED FOR AIRWAY CLEARANCE. AMRY HUGGER FOR HYPOTHERMIA, CURRENTLY 97.1 DEGREES, TEMP GOING UP, ONGOING MONITORING. CLARK PICC PATENT AND INTACT, FLUSHED WITH NS, FREE FROM ANY S/S OF INFILTRATION OR PHLEBITIS, NO BLOOD RETURN NOTED. OGT PATENT AND INTACT, ONGOING TUBE FEEDINGS PRESCRIBED, NO GASTRIC RESIDUALS NOTED AT THIS TIME. WILL CONTINUE TO CLOSELY MONITOR THE PATIENT. BED IN LOWEST AND LOCKED POSITION WITH HOB ELEVATED.
[2017-09-17] MEDS: ATORVASTATIN 10 MG TABLET PO SCH (21:10)
[2017-09-18] VITALS (36 sets, daily range): BP systolic 100–154; BP diastolic 46–73
[2017-09-18] MEDS: PIPERACILLIN /TAZOBACTAM 3.375 G in IV D5W 50 ML IV SCH ×4 (00:01→18:08)
[2017-09-18] MEDS: NYSTATIN TOP POWDER 15 GM BOTTLE TP SCH ×2 (05:08→16:40)
[2017-09-18 05:14] LABS: CALCIUM, SERUM 6.6 mg/dL (8.5-10.1); CARBON DIOXIDE 22 mmol/L (21-32); CHLORIDE 109 mmol/L (98-107); CREATININE 0.9 mg/dL (0.6-1.3); GLUCOSE 144 mg/dL (74-106); POTASSIUM 3.4 mmol/L (3.5-5.1); SODIUM SERUM 139 mmol/L (136-145); UREA NITROGEN, BLOOD 29 mg/dL (7-18)
[2017-09-18] MEDS: BLOOD SUGAR DIAGNOSTIC 1 EACH STRIP IN SCH ×4 (05:16→23:43)
[2017-09-18] MEDS: INSULIN REGULAR, HUMAN 100 UNIT/ML 3 ML VIAL SQ PRN ×3 (05:17→18:08)
[2017-09-18] MEDS: IV 1/2NS 1000 ML 1,000 ML IV PRN ×2 (05:21→21:09)
[2017-09-18] MEDS: GLUCERNA 1.2 1,000 ML BOTTLE NG PRN (05:21)
[2017-09-18 05:51] LABS: HEMATOCRIT 30 % (33-45); HEMOGLOBIN 10.2 g/dL (11.5-14.8); MEAN CORPUSCULAR HEMOGLOBIN 31 PG (26.0-33.0); MEAN CORPUSCULAR HGB CONC 34 g/dl (31.0-36.0); MEAN CORPUSCULAR VOLUME 92 fL (82-100); RDW COEFFICIENT OF VARIATION 15.4 (11.5-15.0); RED BLOOD CELL COUNT(AUTO) 3.23 MIL/uL (4.0-5.2); WHITE BLOOD COUNT (AUTO) 8.8 K/uL (4.3-11.0)
[2017-09-18 05:52] LABS: BASOPHILS % (AUTO) 0.2 % (0.0-2.0); EOSINOPHILS % (AUTO) 0.9 % (0.0-6.0); LYMPHOCYTES % (AUTO) 37.3 % (20.0-44.0); MONOCYTES % (AUTO) 2.2 % (2.0-12.0); NEUTROPHILS % (AUTO) 59.4 % (43.0-81.0); PLATELET COUNT (AUTO) 41 /CMM (150-450)
--- NOTE | 2017-09-18 06:00 | NUR ---
CRITICAL PLT 41 DR MCCORMICK NOTIFIED, NO NEW ORDERS
[2017-09-18 06:17] LABS: EOSINOPHILS % (MANUAL) 1 % (0-4); LYMPHOCYTES % (MANUAL) 41 % (16-48); NEUTROPHILS % (MANUAL) 58 (42-76)
[2017-09-18 06:24] LABS: D-DIMER 7.64 mg/L(FEU (0.17-0.50); INR 1.33 (0.87-1.13)
[2017-09-18] MEDS: PANTOPRAZOLE 40 MG VIAL IV SCH (08:34)
[2017-09-18] MEDS: DAKINS QUARTER STRENGTH (0.125%) 480 ML BOTTLE TOP SCH (08:35)
[2017-09-18] MEDS: CARVEDILOL 3.125 MG TABLET PO SCH ×2 (08:35→21:09)
[2017-09-18] MEDS: AMLODIPINE BESYLATE 5 MG TABLET PO SCH (08:35)
[2017-09-18] MEDS: FUROSEMIDE 40 MG/4 ML VIAL IV SCH ×2 (09:25→16:40)
--- NOTE | 2017-09-18 10:17 | NUR ---
RN NOTE 0720: Received patient awake, able to open eyes, but unable to follow commands at this time. With ETT to CPAP, tolerated at this time. With OGT intact, feeding tolerated, no residuals noted. Kept HOB elevated. SR 90's at this time. Cholecystostomy intact, but but noted with leakage on the site, noted with serous discharge on the accordion bag. CLARK PICC intact, but no blood return noted. IVF infusing as ordered. Still noted with all extremities edema. 0800: S/E by Tiago HUGHES, aware for the leakage on the cholecystostomy site. 0830: S/E by Dr. Carpenter, with order for Lasix today. 0850: S/E by Dr. Fuentes, no new order at this time. 0925: Family arrived, discussed with Dr. Ford re: the POC. 1000: Family decided to do extubation tomorrow in am, MD aware. 1015: No any significant changes noted at this time. Kept clean, warm and dry. Needs attended. VSS at this time. Addendum: 09/18/17 at 1025 by DYAN GONZALES RN Tiago HUGHES aware for the Plt 41, no transfusion for now per PUZZLE ASSEMBLER.
[2017-09-18] MEDS ORDERED: POTASSIUM CHLORIDE 20 MEQ POWDER PACKET GT ONE (12:00)
[2017-09-18] MEDS ORDERED: POTASSIUM CHLORIDE 20 MEQ POWDER PACKET GT SCH (12:00)
[2017-09-18] MEDS: HYDROCODONE/APAP 5/325MG 1 EACH TABLET PO PRN (16:48)
--- NOTE | 2017-09-18 18:38 | NUR ---
RN NOTE No any significant changes noted. Kept clean, warm and dry. Needs attended. Made dr. Carpenter aware for the Albumin level 2.0, no new order.
--- NOTE | 2017-09-18 19:00 | NUR ---
RN INITIAL NOTES RECEIVED THE PATIENT ASLEEP ON BED, LETHARGIC, AROUSABLE TO TOUCH AND PAIN, UNABLE TO FOLLOW COMMANDS. PT IS INTUBATED AND ON VENT WITH SETTINGS CPAP 12, TV 400, FIO2 35%, PEEP 5, ETT 7.0/22@LIP, SATURATING WELL, NO S/S OF RESP DISTRESS. CURRENTLY SR ON THE MONITOR, HR 80'S. RIGHT UPPER ABDOMEN CHOLECYSTOSTOMY DRAIN INTACT. CAMARGO CATH IN PLACE. OGT TO GLUCERNA @ 50MLS/HR, WITH 20MLS RESIDUALS. LEFT UPPER ARM PICC WITH 1/2NS @ 75MLS/HR, NO S/S OF INFILTRATION/INFECTION, DRESSING CDI. BED LOW AND LOCKED, SIDERAILS UP, BED ALARM ON. WILL MONITOR
[2017-09-18] MEDS: ATORVASTATIN 10 MG TABLET PO SCH (21:08)
--- NOTE | 2017-09-18 21:45 | NUR ---
RECEIVED PT INTUBATED 7.0 ETT SECURED AT 22CM AT THE LIP. NO DISTRESS. TOLERATING VENT SETTINGS. B/S CLR DM. SX'D FOR SML AMT OF THIN WHITE SECRETIONS. VENT ALARMS SET AND AUDIBLE. AMBU BAG AT BEDSIDE. ETT SECURED, CUFF APPRAISER IRRIGATION TAX. VENT PLUGGED INTO RED OUTLET. WILL CONTINUE TO MONITOR. Addendum: 09/18/17 at 2146 by ESTEVAN THOMAS RT Amended: Links added.
[2017-09-19] VITALS (24 sets, daily range): BP systolic 88–158; BP diastolic 44–68
[2017-09-19] MEDS: PIPERACILLIN /TAZOBACTAM 3.375 G in IV D5W 50 ML IV SCH ×4 (00:05→18:09)
[2017-09-19 04:44] LABS: BASOPHILS % (AUTO) 0.5 % (0.0-2.0); EOSINOPHILS % (AUTO) 1.4 % (0.0-6.0); HEMATOCRIT 29 % (33-45); LYMPHOCYTES # (AUTO) 3.2 /CMM (0.8-4.8); LYMPHOCYTES % (AUTO) 37.8 % (20.0-44.0); MEAN CORPUSCULAR HEMOGLOBIN 32 PG (26.0-33.0); MEAN CORPUSCULAR HGB CONC 34 g/dl (31.0-36.0); MEAN CORPUSCULAR VOLUME 93 fL (82-100); MONOCYTES # (AUTO) 0.1 /CMM (0.1-1.30); MONOCYTES % (AUTO) 1.6 % (2.0-12.0); NEUTROPHILS % (AUTO) 58.7 % (43.0-81.0); RDW COEFFICIENT OF VARIATION 15.4 (11.5-15.0); RED BLOOD CELL COUNT(AUTO) 3.17 MIL/uL (4.0-5.2); WHITE BLOOD COUNT (AUTO) 8.5 K/uL (4.3-11.0)
[2017-09-19 04:48] LABS: PLATELET COUNT (AUTO) 45 /CMM (150-450)
[2017-09-19 05:01] LABS: CALCIUM, SERUM 6.7 mg/dL (8.5-10.1); CARBON DIOXIDE 21 mmol/L (21-32); CHLORIDE 108 mmol/L (98-107); CREATININE 0.9 mg/dL (0.6-1.3); GLUCOSE 149 mg/dL (74-106); MAGNESIUM 1.8 mg/dL (1.8-2.4); PHOSPHORUS 3.3 mg/dL (2.5-4.9); POTASSIUM 3.8 mmol/L (3.5-5.1); SODIUM SERUM 138 mmol/L (136-145); UREA NITROGEN, BLOOD 32 mg/dL (7-18)
[2017-09-19 05:05] LABS: BAND % (MANUAL) 2 % (0.0-5.0); LYMPHOCYTES % (MANUAL) 40 % (16-48); NEUTROPHILS % (MANUAL) 56 (42-76)
[2017-09-19 05:06] LABS: MONOCYTES % (MANUAL) 2 % (0-11.0)
[2017-09-19] MEDS: NYSTATIN TOP POWDER 15 GM BOTTLE TP SCH ×2 (05:26→17:28)
[2017-09-19] MEDS: BLOOD SUGAR DIAGNOSTIC 1 EACH STRIP IN SCH ×4 (05:26→23:36)
[2017-09-19] MEDS: GLUCERNA 1.2 1,000 ML BOTTLE NG PRN ×2 (05:27→16:49)
[2017-09-19] MEDS: INSULIN REGULAR, HUMAN 100 UNIT/ML 3 ML VIAL SQ PRN ×3 (05:27→23:38)
--- NOTE | 2017-09-19 06:20 | NUR ---
RN CLOSING NOTES PT REMAINS STABLE OF THE MOMENT. ALL DUE MEDS GIVEN, AM CARE PROVIDED. WILL ENDORSE ASIA TO AM RN
--- NOTE | 2017-09-19 07:30 | NUR ---
ICU/RN: Pt received, intubated, tolerating CPAP settings, no distress noted. Lethargic, awakens to light touch and suctioning. IVF infusing well. No active bleeding noted. Billiary drain with yellow output. Flushed with 5cc saline per MD order. FC with scant urine to gravity. Generalized anasarca noted. Kept skin clean and dry. Alarm sounds audible. Will cont to monitor pt.
--- NOTE | 2017-09-19 07:58 | NUR ---
RT PT RECEIVED ORALLY INTUBATED WITH 7.0 ETT SECURED AT 22CM AT THE LIP. PT IS AWAKE AND RESPONDS TO STIMULI WHEN SX'D. VENT IS PLUGGED INTO RED OUTLET WITH BVM BY BEDSIDE. CHARGE AUTHORIZER CUFF PRESSURE NOTED. VENT ALARMS ARE SET AND AUDIBLE. PT SX'D SMALL THIN WHITE/CLEAR SECRETIONS. NO RESPIRATORY DISTRESS NOTED AT THIS TIME, WILL CONTINUE TO MONITOR. Addendum: 09/19/17 at 1126 by IRMA COYLE RT Amended: Links added.
[2017-09-19] MEDS: FUROSEMIDE 40 MG/4 ML VIAL IV SCH ×2 (08:42→17:28)
[2017-09-19] MEDS: PANTOPRAZOLE 40 MG VIAL IV SCH (08:42)
[2017-09-19] MEDS: AMLODIPINE BESYLATE 5 MG TABLET PO SCH (08:44)
[2017-09-19] MEDS: CARVEDILOL 3.125 MG TABLET PO SCH ×2 (08:44→21:08)
[2017-09-19] MEDS: DAKINS QUARTER STRENGTH (0.125%) 480 ML BOTTLE TOP SCH (08:46)
[2017-09-19] MEDS: Z GUARD REMEDY 2 OZ OINT TP PRN (08:47)
--- NOTE | 2017-09-19 09:45 | NUR ---
ICU/RN: Family at bedside, awaiting arrival of automobile rental clerk prior to extubation this am. Pt stable and tolerating CPAP settings.
[2017-09-19] MEDS: IV 1/2NS 1000 ML 1,000 ML IV PRN (11:01)
[2017-09-19] MEDS ORDERED: DC PROPOFOL WHEN EXTUBATED XX PRN (11:15)
--- NOTE | 2017-09-19 11:15 | NUR ---
ICU/RN: Pt extubated as ordered, family at bedside. Supportive care rendered.
--- NOTE | 2017-09-19 11:21 | NUR ---
RT PT EXTUBATED PER DR. GANN ORDERS. PT PLACED ON 4L NASAL CANNULA. PT APPEARS TO BE COMFORTABLE AT THIS TIME WITH FAMILY AT BEDSIDE. Addendum: 09/19/17 at 1126 by IRMA COYLE RT Amended: Links added.
[2017-09-19] MEDS ORDERED: LORAZEPAM INJ 2 MG/ML VIAL IV PRN (11:30)
[2017-09-19] MEDS ORDERED: MORPHINE SULFATE INJ 2 MG/ML DISP.SYRIN IV PRN (11:30)
--- NOTE | 2017-09-19 14:30 | NUR ---
ICU/RN: Pt in, bed, attempting to communicate needs in tagalog to family at bedside, follows some commands. Wound care and hygienic care rendered. Daughter at bedside wishes to continue current treatment and medications, including GTF. However, should pt status decline, okay to proceed with comfort care and administer Ativan and Morphine to keep pt comfortable. Dr Ford notified with clearance to downgrade to lower level of care.
--- NOTE | 2017-09-19 15:00 | NUR ---
ICU/RN: Juan M Ordoñez NP rounds. Updated on pt extubation and status.
--- NOTE | 2017-09-19 15:45 | NUR ---
GUIDANCE CONSULTANT REPORT RECEIVED TELEPHONE REPORT FROM ICU NURSE. PT. WILL BE MOVED FROM ROOM 252.
--- NOTE | 2017-09-19 16:15 | NUR ---
RECEIVED PT. IN ROOM 319 FROM ICU BED 252. PT. IS IN STABLE CONDITION. BREATHING ON OXYGEN 4L/MIN VIA NASAL CANNULA. PT. HAD AN ORAL GASTRIC TUBE. LEFT UPPER ARM DOUBLE LUMEN CENTRAL LINE INSERTED IN [place]. PT. HAS A CAMARGO CATHETER WITH CLEAR, AND YELLOW URINE OUTPUT 150 CC. PT. HAS A CYSTECTOMY BILE DRAIN WITH 600 CC OUTPUT, FLUID IS CREAM AND CLOUDY. PT. IS ON A KCI MATTRESS, AND BOTH HANDS ARE CYANOTIC. PT.'S VITALS ARE WNL, AND PT. WAS PLACED ON A TELE MONITOR READING SINUS RHYTHM TO ATRIAL FIBRILLATION 101 BPM. NO S/S OF ACUTE DISTRESS NOTED.
--- NOTE | 2017-09-19 16:15 | NUR ---
ICU/RN: Pt transferred to [facility] 319-1; pt no distress noted, attempting to communicate verbally with RN. OGT patent and intact. ASH PICC flushed and patent. R Cholecystostomy tube in place, with yellow drainage noted. No active bleeding noted. FC to gravity. Offered pain meds, pt refuses. Temp 97.1, no indication for lori hugger at this time, warm blankets applied. Bedside report given to AMANDA Pemberton for ASIA.
--- NOTE | 2017-09-19 19:15 | NUR ---
RN CLOSING NOTES PT. IS IN BED A&OX1. PT. IS IN STABLE CONDITION. BREATHING UNLABORED ON OXYGEN 4L/MIN VIA NASAL CANNULA. PT. HAD AN ORAL GASTRIC TUBE WITH G TUBE FEEDING RUNNING AT 50 ML/HR. LEFT UPPER ARM DOUBLE LUMEN CENTRAL LINE HAS IV FLUIDS RUNNING AT 7 ML/HR. CAMARGO CATHETER IS DRAINING WITH CLEAR, AND YELLOW URINE OUTPUT 350 CC. PT. HAS A CYSTECTOMY BILE DRAIN WITH 800 CC OUTPUT, FLUID IS CREAM AND CLOUDY. PT. IS ON A KCI MATTRESS. PT.'S VITALS ARE WNL. TELE MONITOR READING SINUS RHYTHM 90BPM. NO S/S OF ACUTE DISTRESS NOTED. WILL ENDORSE REPORT TO NURSE.
--- NOTE | 2017-09-19 19:30 | NUR ---
MASON TENDER RESTORATION LABOR OPENING NOTES RECEIVED PATIENT IN BED WITH EYES OPEN. NONVERBAL. BREATHING EVEN AND UNLABORED. NO SOB NOTED. ON 4L OXYGEN VIA NC. CURRENTLY WITH NO COMPLAINTS OF PAIN OR DISCOMFORT. NO FACIAL GRIMACING NOTED. PATIENT WITH A LEFT UPPER ARM PICC LINE INTACT AND PATENT - CURRENTLY INFUSING 1/2 NS @ 75ML/HR. PATIENT ALSO WITH ORAL GTUBE INTACT AND PATENT - INFUSING GLUCERNA AT 50CC/HR - TOLERATING WELL WITH NO RESIDUAL. PATIENT ALSO NOTED WITH A COLECYSTOSTOMY BILE DRAIN INTACT AND DRAINING WELL. PATIENTS SKIN DRY AND WARM TO TOUCH BUT WITH WEAPING EDEMATOUS ALL OVER THE BODY. ALL OTHER NEEDS ATTENDED TO. CALL LIGHT WITHIN REACH. BED ON LOWEST LOCKED POSITION. WILL CONTINUE TO MONITOR.
[2017-09-19] MEDS: ATORVASTATIN 10 MG TABLET PO SCH (21:08)
[2017-09-20] VITALS: BP 103/62
[2017-09-20] MEDS: PIPERACILLIN /TAZOBACTAM 3.375 G in IV D5W 50 ML IV SCH ×2 (01:03→06:29)
[2017-09-20 04:28] VITALS: BP 134/100
[2017-09-20] MEDS: IV 1/2NS 1000 ML 1,000 ML IV PRN (04:36)
[2017-09-20] MEDS: BLOOD SUGAR DIAGNOSTIC 1 EACH STRIP IN SCH (05:15)
[2017-09-20] MEDS: NYSTATIN TOP POWDER 15 GM BOTTLE TP SCH (05:15)
[2017-09-20] MEDS: INSULIN REGULAR, HUMAN 100 UNIT/ML 3 ML VIAL SQ PRN (05:22)
--- NOTE | 2017-09-20 05:22 | NUR ---
RN NOTES BS 146 - 2 UNITS OF INSULIN GIVEN
--- NOTE | 2017-09-20 06:54 | NUR ---
PASTEURISER OPERATOR CLOSING NOTES PATIENT RESTING IN BED. AROUSABLE TO TOUCH. NONVERBAL. BREATHING EVEN AND UNLABORED. NO SOB NOTED. ON 4L OXYGEN VIA NC. CURRENTLY WITH NO COMPLAINTS OF PAIN OR DISCOMFORT. NO FACIAL GRIMACING NOTED. PATIENT WITH A LEFT UPPER ARM PICC LINE INTACT AND PATENT - CURRENTLY INFUSING 1/2 NS @ 75ML/HR. PATIENT ALSO WITH ORAL GTUBE INTACT AND PATENT - INFUSING GLUCERNA AT 50CC/HR - TOLERATING WELL WITH ABOUT 10ML RESIDUAL. PATIENT ALSO NOTED WITH A COLECYSTOSTOMY BILE DRAIN INTACT AND DRAINING BLOOD TINGED FLUID. PATIENTS SKIN DRY AND WARM TO TOUCH BUT WITH WEAPING EDEMATOUS. HANDS ARE CYANOTIC. KEPT CLEAN, DRY, AND COMFORTABLE. WOUND TREATMENTS ORDERED. TURNED AND REPOSITIONED Q2H AND PRN. ALL OTHER NEEDS ATTENDED TO. CALL LIGHT WITHIN REACH. BED ON LOWEST LOCKED POSITION. WILL ENDORSE TO ONCOMING NURSE FOR CONTINUITY OF CARE.
[2017-09-20 07:07] LABS: BASOPHILS % (AUTO) 0.4 % (0.0-2.0); EOSINOPHILS % (AUTO) 0.6 % (0.0-6.0); HEMATOCRIT 28 % (33-45); HEMOGLOBIN 9.5 g/dL (11.5-14.8); LYMPHOCYTES # (AUTO) 2.2 /CMM (0.8-4.8); LYMPHOCYTES % (AUTO) 28.2 % (20.0-44.0); MEAN CORPUSCULAR HEMOGLOBIN 32 PG (26.0-33.0); MEAN CORPUSCULAR HGB CONC 34 g/dl (31.0-36.0); MEAN CORPUSCULAR VOLUME 94 fL (82-100); MONOCYTES # (AUTO) 0.1 /CMM (0.1-1.30); MONOCYTES % (AUTO) 1.8 % (2.0-12.0); NEUTROPHILS # (AUTO) 5.4 /CMM (1.8-8.9); PLATELET COUNT (AUTO) 85 /CMM (150-450); RDW COEFFICIENT OF VARIATION 15.6 (11.5-15.0); RED BLOOD CELL COUNT(AUTO) 2.99 MIL/uL (4.0-5.2); WHITE BLOOD COUNT (AUTO) 7.9 K/uL (4.3-11.0)
[2017-09-20 07:26] LABS: CALCIUM, SERUM 6.6 mg/dL (8.5-10.1); CARBON DIOXIDE 23 mmol/L (21-32); CHLORIDE 105 mmol/L (98-107); CREATININE 0.9 mg/dL (0.6-1.3); GLUCOSE 164 mg/dL (74-106); POTASSIUM 3.5 mmol/L (3.5-5.1); SODIUM SERUM 137 mmol/L (136-145); UREA NITROGEN, BLOOD 39 mg/dL (7-18)
--- NOTE | 2017-09-20 07:59 | NUR ---
VENDING ATTENDANT OPENING NOTE RECEIVED PATIENT IN BED, ALERT, NON-VERBAL. DISORIENTED, RESPONDS TO PHYSICAL STIMULI WITH EYE OPENING. ON 4L O2 VIA NC. RESPIRATIONS EVEN AND UNLABORED. IN NO APPARENT DISTRESS OR DISCOMFORT AT THIS TIME. PATIENT ON TELE MONITORING WITH SINUS RHYTHM 75 HR. PATIENT HAS GENERALIZED BODY EDEMA, RIGHT HAND CYANOTIC. ORAL G-TUBE IN PLACE, INTACT, FEEDING RUNNING AT 50ML/HR, TOLERATING WELL. CAMARGO CATHETER FOR ELIMINATION, DRAINING CLEAR YELLOW URINE. CHOLECYSTOSTOMY BILE DRAIN IN PLACE, DRAINING BLOODY FLUID, PATENT. PICC LINE ON LEFT UPPER ARM. PATENT AND INTACT, WITH 1/2 NS RUNNING AT 75ML/HR. PATIENT KEPT CLEAN AND COMFORTABLE. SAFETY MEASURES IN PLACE, BED IN LOW LOCKED POSITION, SIDE RAILS UP X3, CALL LIGHT WITHIN EASY REACH. WILL CONTINUE TO MONITOR.
[2017-09-20 08:00] VITALS: BP 152/67
[2017-09-20 08:19] LABS: BAND % (MANUAL) 1 % (0.0-5.0); LYMPHOCYTES % (MANUAL) 37 % (16-48); MONOCYTES % (MANUAL) 4 % (0-11.0); NEUTROPHILS % (MANUAL) 58 (42-76)
--- NOTE | 2017-09-20 08:30 | NUR ---
PATIENT AT 0820 THIS MORNING. WAS NOTIFIED BY TUTORING MANAGER ABOUT PATIENT'S UNEXPECTEDLY DECREASED HEART RATE, IMMEDIATELY WENT TO THE ROOM TO CHECK ON THE PATIENT. PATIENT WAS FOUND NON-RESPONSIVE. DUE TO DNR/DNI STATUS NO LIFE SAVING MEASURES WERE INITIATED. CALLED CAKE WINDER JINA, TO VERIFY AND NOTE THE TIME OF . NOTIFIED ATTENDING PHYSICIAN KELLIE AVILEZ NP. NOTIFIED GOVERNMENT RELATIONS MANAGER EUN, NOTIFIED OWEN IN ADMITTING. CALLED AND INFORMED THE FAMILY. WILL TAKE ALL THE NECESSARY ACTIONS FOR POST MORTEM CARE.
--- NOTE | 2017-09-20 08:35 | NUR ---
MS/RN Patient pronounced Called to room, patient found without respirations, no heart beat, pupils fixed and dilated. Pronounced at 0820, 09/20/17
--- NOTE | 2017-09-20 09:05 | NUR ---
SPOKE TO [facility] FROM [facility]. REPORTED PATIENT AT 0820 THIS MORNING. .
== END 2017-09-20 08:20 | disposition expired | DRG 853 ==
LOC: ICU 20:43 → TELE 09-19 15:56
PROVIDERS: ADMIT Nurse Practitioner Acute Care; ATTEND Nurse Practitioner Acute Care
PROC: 5A1955Z Respiratory Ventilation, Greater than 96 Consecutive Hours (ICD-10-PCS; principal; 2017-09-09)
PROC: 0QB10ZZ Excision of Sacrum, Open Approach (ICD-10-PCS; 2017-09-12)
PROC: 0F9430Z Drainage of Gallbladder with Drainage Device, Percutaneous Approach (ICD-10-PCS; 2017-09-12)
PROC: 30233M1 Transfusion of Nonautologous Plasma Cryoprecipitate into Peripheral Vein, Percutaneous Approach (ICD-10-PCS; 2017-09-14)
PROC: 30233R1 Transfusion of Nonautologous Platelets into Peripheral Vein, Percutaneous Approach (ICD-10-PCS; 2017-09-14)
PROC: 30233N1 Transfusion of Nonautologous Red Blood Cells into Peripheral Vein, Percutaneous Approach (ICD-10-PCS; 2017-09-16)
DX: A41.50 Gram-negative sepsis, unspecified (principal); L89.154 Pressure ulcer of sacral region, stage 4; Z51.5 Encounter for palliative care; Z66 Do not resuscitate; I21.A1 Myocardial infarction type 2; N17.0 Acute kidney failure with tubular necrosis; J18.9 Pneumonia, unspecified organism; J96.01 Acute respiratory failure with hypoxia; G92 Toxic encephalopathy; R65.21 Severe sepsis with septic shock; D65 Disseminated intravascular coagulation [defibrination syndrome]; I21.4 Non-ST elevation (NSTEMI) myocardial infarction; E43 Unspecified severe protein-calorie malnutrition; I50.31 Acute diastolic (congestive) heart failure; I69.951 Hemiplegia and hemiparesis following unspecified cerebrovascular disease affecting right dominant side; E87.2 Acidosis; K80.12 Calculus of gallbladder with acute and chronic cholecystitis without obstruction; E87.0 Hyperosmolality and hypernatremia; D68.59 Other primary thrombophilia; I25.10 Atherosclerotic heart disease of native coronary artery without angina pectoris; F03.90 Unspecified dementia, unspecified severity, without behavioral disturbance, psychotic disturbance, mood disturbance, and anxiety; E11.9 Type 2 diabetes mellitus without complications; D72.829 Elevated white blood cell count, unspecified; E86.1 Hypovolemia; R74.0 Nonspecific elevation of levels of transaminase and lactic acid dehydrogenase [LDH]; K52.9 Noninfective gastroenteritis and colitis, unspecified; Z74.01 Bed confinement status; F09 Unspecified mental disorder due to known physiological condition; M24.541 Contracture, right hand; K57.90 Diverticulosis of intestine, part unspecified, without perforation or abscess without bleeding; L60.3 Nail dystrophy; E83.51 Hypocalcemia; E87.6 Hypokalemia; L98.8 Other specified disorders of the skin and subcutaneous tissue; L30.4 Erythema intertrigo; D50.9 Iron deficiency anemia, unspecified; D63.8 Anemia in other chronic diseases classified elsewhere; I11.0 Hypertensive heart disease with heart failure
CPT/HCPCS: 31720; 36415; 36600; 71045-TC; 74018; 75989; 78226; 80048-TC; 80053-TC; 80061-TC; 80202-TC; 81000-TC; 82040-TC; 82140-TC; 82248-TC; 82272-TC; 82306; 82570-TC; 82652; 82728-TC; 82746; 82784; 82803-TC; 82962-TC; 83540-TC; 83605-TC; 83690-TC; 83735-TC; 83970; 84100-TC; 84134-TC; 84155; 84155-TC; 84165; 84300-TC; 84443-TC; 84484-TC; 85025-TC; 85027-TC; 85385-TC; 85396; 85610-TC; 85730-TC; 86334; 86850-TC; 86921-TC; 87040-TC; 87070-TC; 87081-TC; 87086-TC; 87186-TC; 88305-TC; 88312-TC; 89051-TC; 93307-TC; 94002-TC; 94003-TC; 94760-TC; 94799-TC; 99082-TC; A4216; A4217; A4606; A6253; A6402; A6403; A9537; C9113; J0360; J0610; J0692; J0696; J1815; J1940; J2250; J2270; J2310; J2543; J3010; J3370; J3475; J3480; J3490; J7030; J7040; J7042; J7050; J7060; P9012; P9016-BL; P9034-BL; P9047; Q9967; Z7610